=== PATIENT | male | born 1950 | race Caucasian/White ===

== ENCOUNTER 2018-07-30 19:13 | Inpatient (IN) | payer MEDICARE, BC ==
--- OUTSIDE RECORDS SUMMARY | 2018-07-30 19:31 | XMS REPORT ---
:1950 External Reference #:[id number] Author Organization [facility] Address [address] [place] [address] Phone [phone] Care Team Providers Name Role Phone Jean-Claude Magaña MD Care Team Information Seasoner Unavailable Jean-Claude Magaña MD Primary Care Physician Unavailable Payers Type Date Identification Numbers Payment Provider Subscriber Medicare Primary Effective: Policy Number: Medicare [place]nn Christensen 2014 [id number] PayID: [id number] [address] [place] [address] Medigap Part B Effective: 2001 Policy Number: [facility] Brooklynn Christensen [id number] PayID: [id number] [address] [place] [address] Problems Date Description Provider Status Onset: 02/23/2016 Mixed hyperlipidemia Jean-Claude Magaña M.D. Active Onset: 12/28/2014 Diarrhea Jean-Claude Magaña M.D. Active Onset: 09/06/2011 Diverticulitis of colon Jean-Claude Magaña M.D. Active Onset: 09/06/2011 Benign prostatic hypertrophy without Jean-Claude Magaña M.D. Active outflow obstruction Onset: 10/23/2007 Multiple congenital cysts of kidney Jean-Claude Magaña M.D. Active Onset: 10/23/2007 Benign essential hypertension Jean-Claude Magaña M.D. Active Onset: 10/23/2007 Hyperlipidemia Jean-Claude Magaña M.D. Active Onset: 10/23/2007 Coronary arteriosclerosis Jean-Claude Magaña M.D. Active Family History Date Family Member(s) Problem(s) Comments First Daughter polycystic renal disease Status post renal transplant Social History Type Date Description Comments Occupation Guide Cigarette Use Former Cigarette Smoker Cigars Current Cigar Smoker, Smokes An Occasional Cigar ETOH Use Occasional Smoking Patient is a former smoker Allergies, Adverse Reactions, Alerts Date Description Reaction Status Severity Comments 04/20/2007 Niacin active flush 05/07/2007 Cipro active 05/21/2017 Metronidazole lips swell active Moderate 07/29/2018 Augmentin diarrhea active Medications Medication Date Status Form Strength Qnty SIG Indications Ordering Provider Nitrostat 10/30/ Active Tablets 0.4mg 25tabs 1 sl as Jean-Claude F. 2017 Sub needed, Archana, repeat M.D. every 5 minutes up to three tabs, call 911 Lisinopril 09/11/ Active Tablets 10mg 90tabs Take 1 Jean-Claude F. 2012 Tablet By Shallish, Mouth Once M.D. Daily Crestor 04/17/ Active Tablets 10mg 45tabs Take 1/2 Jean-Claude F. 2010 Tablet By Shallish, Mouth Once M.D. Daily Folic Acid 07/18/ Active Tablets 1mg 90tabs Take 1 Jean-Claude F. 2004 Tablet By Shallish, Mouth Once M.D. Daily Asa 05/11/ Active 81mg PO qd Jean-Claude F. 2003 Isabella Magaña Metoprolol 05/11/ Active Tablets 50mg 90tabs Take 1/2 Jean-Claude F. Tartrate 2003 Tablet By Shallish, Mouth M.D. Daily In The Morning And 1/2 Tablet In The Evening Bactrim DS 04/15/ Hx Tablets 800-160mg 20tabs 1 by mouth Jean-Claude F. 2017 - twice a Shallish, 07/17/ day M.D. 2017 Bactrim DS 05/21/ Hx Tablets 800-160mg 20tabs 1 by mouth Jean-Claude F. 2016 - twice a Shallish, 03/16/ day M.D. 2017 Metronidazole 05/21/ Hx Tablets 250mg 21tabs 1 po tid Jean-Claude F. 2016 - Shallish, 05/21/ M.D. 2016 Metronidazole 09/23/ Hx Tablets 500mg 24tabs 1 pill Jonathon Holder 2016 - tHREE Breiman, 02/22/ Times A M.D. 2015 Day For 8 Days Clobetasol 12/28/ Hx Cream 0.05% 60GMS apply Jean-Claude F. Propionate 2014 - twice a Shallish, 07/23/ day as M.D. 2018 needed Folate 03/30/ Hx 1mg 90unit 1 po qd Jean-Claude F. 2012 - s Archana, 03/30/ M.D. 2012 Metoprolol 12/22/ Hx 50mg. 09/17 tab Jean-Claude F. Tartrate 2012 - am, 09/17 Shalladriano, 12/22/ tab pm M.D. 2012 Azithromycin 07/05/ Hx Tablets 250mg 6tabs take 2 Jean-Claude F. 2011 - tablets by Archana, 07/12/ mouth on M.D. 2011 day 1 then 1 tablet on days 2 through 5 Metronidazole 04/21/ Hx Tablets 500mg 30tabs 1 po tid Jean-Claude F. 2011 - Archana, 05/01/ M.D. 2011 Azithromycin 09/06/ Hx Tablets 250mg 6tabs take 2 Jean-Claude F. 2010 - tablets by Archana, 03/13/ mouth on M.D. 2011 day 1 then 1 tablet on days 2 through 5 Fiorinal 06/19/ Hx 100uni use 2 po Jonathon Holder 2009 - ts q 4-6 hr Kylie, 02/27/ M.D. 2010 Metronidazole 02/14/ Hx Tablets 500mg 14tabs 1po bid x 562.11 Mary Corley 2009 - 7d. with Corina, 06/19/ eliecer or Isabella 2009 mehnaz. Ceftin 02/06/ Hx Tablets 500mg 20tabs 1 PO bid Jean-Claude F. 2009 - Archana, 02/16/ M.D. 2009 Doxycycline 07/23/ Hx Capsules 100mg 2caps use 2 Jonathon Urrutia 2007 - pills Breimajaney, 08/16/ M.D. 2009 Crestor 11/25/ Hx Tablets 5mg 90tabs 1 po qd Jean-Claude F. 2007 - Archana, 04/17/ M.D. 2010 Lovaza 11/08/ Hx Capsules 1gm 180cap 1 po bid Jean-Claude F. 2007 - s Archana, 11/25/ M.D. 2007 Ceftin 05/07/ Hx Tablets 500mg 20tabs 1 PO bid Laurence 2006 - Arielle, 05/17/ Afnp-C 2007 Ciprofloxacin 02/26/ Hx Tablets 500mg 20tabs 1 bid x Jonathon Holder 2007 - 10 days Erinimajaney, 05/07/ M.D. 2006 Niaspan 02/23/ Hx Capsules 500mg 90caps 1 PO qd Jean-Claude F. 2006 - Shallish, 04/20/ M.D. 2007 [facility] 5 Panel Drug Test Jean-Claude F. 2005 - For Dot Shallish, M.D. 2008 (Dot 5 Panel) Folate 07/18/ Hx 1mg 90unit 1 po qd Jean-Claude F. 2004 - s ish, M.D. 2012 Zetia 07/03/ Hx Tablets 10mg 90tabs 1 po qd Jean-Claude F. 2004 - Shallish, M.D. 2008 Pravachol 06/12/ Hx Tablets 20mg 30tabs 1 po hs Jean-Claude F. 2004 - ish, M.D. 2004 Nitroglycerin 06/12/ Hx Tablets 0.4mg 25tabs 1 sl prn Jean-Claude F. 2004 - Sub Chest [facility], 11/12/ Pain, January M.D. 2013 Repeat q 5-10Min,If No Relief After 3,Call Emt's Zocor 01/24/ Hx Tablets 20mg 90tabs 1 PO QHS Jean-Claude F. 2004 - Shallish, M.D. 2004 Clobetasol 01/11/ Hx .05%Cream 60gm apply Jean-Claude F. 2004 - twice a ish, 12/28/ day as M.D. 2014 needed Lopressor 05/11/ Hx 50mg. 90unit 09/17 tab Jean-Claude F. 2003 - s am, 09/17 Shallish, 12/22/ tab pm M.D. 2012 Lipitor 05/11/ Hx 10mg 90unit 1 po qd [facility]. 2003 [facility] 2007 Amoxicillin 02/24/ Hx 250mg 30unit 1 PO tid Laurence 2002 - s Arielle, 03/06/ Afnp-C 2002 Zestril 12/02/ Hx Tablets 10mg 90tabs 1 tablet Jean-Claude F. 1997 - once daily ish, M.D. 2016 Colyte 10/21/ Hx 1units as Jean-Claude F. 1997 - Directed ish, M.D. 1997 Immunizations CPT Code Status Date Vaccine Lot # [id number] Given 09/06/2011 Tdap Tetanus, W Pertussis [id number] Vital Signs Date Vital Result Comment 07/29/2018 BP Systolic 138 mmHg BP Diastolic 60 mmHg Heart Rate 56 /min Body Temperature 99.0 F Respiratory Rate 20 /min O2 % BldC Oximetry 95 % Height 66.5 inches 5'6.50" Weight 182.50 lb BMI (Body Mass Index) 29.0 kg/m2 04/15/2018 BP Systolic 116 mmHg BP Diastolic 68 mmHg Heart Rate 52 /min Body Temperature 98.2 F Respiratory Rate 16 /min Height 66.5 inches 5'6.50" Weight 178.38 lb BMI (Body Mass Index) 28.4 kg/m2 12/07/2016 Right Visual Acuity Distance 20/30/ uncorrected Left Visual Acuity Distance 20/40 uncorrected 10/30/2016 BP Systolic 118 mmHg BP Diastolic 60 mmHg Heart Rate 68 /min Respiratory Rate 18 /min Height 66.5 inches 5'6.50" Weight 186.12 lb BMI (Body Mass Index) 29.6 kg/m2 Right Visual Acuity Distance 20/20 corrected Left Visual Acuity Distance 20/20 corrected 02/23/2016 BP Systolic 128 mmHg BP Diastolic 68 mmHg Heart Rate 64 /min Body Temperature 98.1 F Respiratory Rate 16 /min Height 66 inches 5'6" Measured Weight 181.00 lb BMI (Body Mass Index) 29.2 kg/m2 12/28/2014 BP Systolic 120 mmHg BP Diastolic 74 mmHg Heart Rate 58 /min Body Temperature 98.0 F Respiratory Rate 16 /min Height 66 inches 5'6" Measured Weight 174.50 lb BMI (Body Mass Index) 28.2 kg/m2 11/12/2013 BP Systolic 116 mmHg BP Diastolic 66 mmHg Heart Rate 60 /min Body Temperature 97.9 F Respiratory Rate 14 /min Height 66 inches 5'6" Measured Weight 180.00 lb BMI (Body Mass Index) 29.0 kg/m2 03/13/2012 BP Systolic 128 mmHg BP Diastolic 72 mmHg Heart Rate 60 /min Body Temperature 97.6 F Height 66 inches 5'6" Measured Weight 169.00 lb BMI (Body Mass Index) 27.3 kg/m2 10/23/2011 Height 66 inches 5'6" Measured 09/06/2011 BP Systolic 140 mmHg BP Diastolic 74 mmHg Heart Rate 56 /min Body Temperature 98.1 F Height 66 inches 5'6" Measured Weight 173.00 lb BMI (Body Mass Index) 27.9 kg/m2 Right Visual Acuity Distance 20/20 corrected Left Visual Acuity Distance 20/20 corrected 02/27/2011 BP Systolic 122 mmHg BP Diastolic 64 mmHg Heart Rate 68 /min Height 66.25 inches 5'6.25" Weight 172.00 lb BMI (Body Mass Index) 27.5 kg/m2 Right Visual Acuity Distance 20/20 corrected Left Visual Acuity Distance 20/20 06/19/2010 BP Systolic 120 mmHg BP Diastolic 80 mmHg Heart Rate 52 /min Height 66.25 inches 5'6.25" Weight 170.00 lb BMI (Body Mass Index) 27.2 kg/m2 02/14/2010 BP Systolic 102 mmHg BP Diastolic 60 mmHg Heart Rate 66 /min Body Temperature 97.7 F Height 66.25 inches 5'6.25" Weight 168.00 lb BMI (Body Mass Index) 26.9 kg/m2 08/16/2009 BP Systolic 140 mmHg BP Diastolic 78 mmHg Heart Rate 64 /min Body Temperature 97.7 F Height 66.25 inches 5'6.25" Weight 168.00 lb BMI (Body Mass Index) 26.9 kg/m2 07/23/2008 BP Systolic 150 mmHg BP Diastolic 70 mmHg Heart Rate 72 /min Body Temperature 98.1 F Height 66.25 inches 5'6.25" Weight 178.00 lb BMI (Body Mass Index) 28.5 kg/m2 10/23/2007 BP Systolic 128 mmHg BP Diastolic 74 mmHg Heart Rate 56 /min Body Temperature 97.1 F Respiratory Rate 16 /min Height 66.25 inches 5'6.25" Weight 174.00 lb BMI (Body Mass Index) 27.9 kg/m2 05/07/2007 BP Systolic 102 mmHg BP Diastolic 72 mmHg Heart Rate 84 /min Body Temperature 99.0 F Height 66.25 inches 5'6.25" 02/07/2007 BP Systolic 94 mmHg BP Diastolic 60 mmHg Heart Rate 68 /min Body Temperature 98.7 F Height 66.25 inches 5'6.25" Weight 174.00 lb BMI (Body Mass Index) 27.9 kg/m2 01/03/2006 BP Systolic 116 mmHg BP Diastolic 64 mmHg Heart Rate 56 /min Height 66.25 inches 5'6.25" Right Visual Acuity Distance 20/20 Corrected Left Visual Acuity Distance 20/20 Corrected 07/03/2005 BP Systolic 126 mmHg BP Diastolic 70 mmHg Heart Rate 56 /min Height 66.25 inches 5'6.25" 06/13/2005 BP Systolic 138 mmHg BP Diastolic 88 mmHg Heart Rate 70 /min Body Temperature 98.0 F Respiratory Rate 20 /min Height 66.25 inches 5'6.25" 06/12/2005 BP Systolic 110 mmHg BP Diastolic 70 mmHg Heart Rate 52 /min Height 66.25 inches 5'6.25" Weight 164.00 lb BMI (Body Mass Index) 26.3 kg/m2 01/11/2005 BP Systolic 120 mmHg BP Diastolic 80 mmHg Heart Rate 56 /min Height 66.25 inches 5'6.25" Weight 172.00 lb BMI (Body Mass Index) 27.5 kg/m2 09/12/2004 BP Systolic 136 mmHg BP Diastolic 70 mmHg Heart Rate 68 /min Height 66.25 inches 5'6.25" Weight 174.00 lb BMI (Body Mass Index) 27.9 kg/m2 05/11/2004 BP Systolic 108 mmHg BP Diastolic 60 mmHg Heart Rate 60 /min Height 66.25 inches 5'6.25" Weight 168.00 lb BMI (Body Mass Index) 26.9 kg/m2 02/24/2003 BP Systolic 120 mmHg BP Diastolic 62 mmHg Heart Rate 68 /min Body Temperature 98.6 F Height 67 inches 5'7" Weight 170.00 lb BMI (Body Mass Index) 26.6 kg/m2 01/19/1998 BP Systolic 116 mmHg BP Diastolic 74 mmHg Height 67 inches 5'7" Weight 154.00 lb 12/09/1997 BP Systolic 114 mmHg BP Diastolic 68 mmHg Height 67 inches 5'7" Weight 163.00 lb 10/01/1997 BP Systolic 130 mmHg L Arm SM Cuff BP Diastolic 70 mmHg L Arm SM Cuff Heart Rate 6060 /min Body Temperature 97.4 F Height 67.00 inches 5'7" Weight 176.00 lb Results Test Date Test Result H/L Range Note Lipid Profile 04/15/2018 Cholesterol 178 mg/dL 120-200 Triglycerides 261 mg/dL High 30-200 HDL Cholesterol 32 mg/dL 30-70 LDL (Calculated) 94 CALC 0-129 VLDL Cholesterol 52 mg/dL High 0-50 HDL Risk Factor 5.6 CALC High 0.0-4.4 Comprehensive Metabolic Prof 04/15/2018 Sodium 136 mEq/L 134-149 Potassium 5.2 mEq/L 3.6-5.5 Chloride 109 mEq/L 94-112 Carbon Dioxide 21 mEq/L 21-32 Glucose 113 mg/dL High 70-105 1 BUN 52 mg/dL High 6-26 Creatinine 2.7 mg/dL High 0.6-1.4 BUN/Creat Ratio 19.3 CALC 8.0-36.0 Calcium 9.2 mg/dL 8.6-10.2 Total Protein 7.3 g/dL 6.4-8.3 Albumin 4.7 g/dL 3.8-5.5 Globulin 2.6 g/dL 2.0-4.8 A/G Ratio 1.8 CALC 0.6-2.3 Alk. Phosphatase 73 U/L 22-95 Alt (SGPT) 33 U/L 7-35 Ast (Sgot) 22 U/L 5-34 Total Bilirubin 0.7 mg/dL 0.2-1.3 GFR Non- 25 ml/min/1.73m^ Low >=60 GFR 30 ml/min/1.73m^ Low >=60 Laboratory test finding 04/15/2018 TSH 1.92 mIU/L 0.50-6.00 CK 180 U/L High 38-174 PSA 0.6 ng/mL 0.0-4.0 CBC Electronic Fma 04/15/2018 WBC 7.9 x10^3/UL 4.0-10.0 RBC 5.84 x10^6/UL 3.93-6.00 HGB 18.1 g/dL High 12.0-17.0 2 HCT 52 % High 35-50 3 MCV 89.7 fL 80.0-95.0 MCH 31.0 pg 25.6-32.2 MCHC 34.5 g/dL 32.2-36.0 RDW-CV 12.7 % 11.6-14.4 PLT 196 x10^3/UL 163-400 MPV 9.7 fL 9.4-12.4 Bennett# 5.09 x10^3/UL 1.56-6.13 Lymph# 1.75 x10^3/UL 1.18-3.74 Sumner# 0.63 x10^3/UL 0.24-0.82 Eos # 0.3 x10^3/UL 0.0-0.5 Baso # 0.04 x10^3/UL 0.01-0.08 Bennett% 64.9 % 34.0-70.0 Lymph % 22.3 % 20.0-52.0 Sumner% 8.0 % 5.0-12.0 Eos% 3.4 % 0.7-7.0 Baso% 0.5 % 0.1-1.2 Ua - Non Micro (Fma) 04/15/2018 Appearance clear Color yellow Glucose, Urine (Fma/CMC/CTX) negative Bilirubin negative Ketones negative SP Grav 1.010 Blood negative PH 5.5 Protein negative Urobil 0.2 Nitrite negative Leukocytes (Fma/CMC/Centrex) negative Lipid Profile 10/30/2016 Cholesterol 159 mg/dL 120-200 Triglycerides 240 mg/dL High 30-200 HDL Cholesterol 28 mg/dL Low 30-70 4 LDL (Calculated) 83 CALC 0-129 VLDL Cholesterol 48 mg/dL 0-50 HDL Risk Factor 5.7 CALC High 0.0-4.4 Comprehensive Metabolic Prof 10/30/2016 Sodium 141 mEq/L 134-149 Potassium 4.9 mEq/L 3.6-5.5 Chloride 106 mEq/L 94-112 Carbon Dioxide 23 mEq/L 21-32 Glucose 95 mg/dL 70-105 BUN 40 mg/dL High 6-26 5 Creatinine 1.9 mg/dL High 0.6-1.4 6 BUN/Creat Ratio 21.1 CALC 8.0-36.0 Calcium 9.3 mg/dL 8.6-10.2 Total Protein 7.7 g/dL 6.4-8.3 Albumin 4.7 g/dL 3.8-5.5 Globulin 3.0 g/dL 2.0-4.8 A/G Ratio 1.6 CALC 0.6-2.3 Alk. Phosphatase 57 U/L 22-95 Alt (SGPT) 31 U/L 7-35 Ast (Sgot) 27 U/L 5-34 Total Bilirubin 1.0 mg/dL 0.2-1.3 GFR Non- 38 ml/min/1.73m^ Low >=60 GFR 46 ml/min/1.73m^ Low >=60 Laboratory test finding 10/30/2016 TSH 2.45 mIU/L 0.50-6.00 CK 195 U/L High 38-174 7 PSA 1.2 ng/mL 0.0-4.0 Ua - Non Micro ([facility]) 10/30/2016 Appearance clear Color yellow Glucose, Urine (a/CMC/CTX) neg Bilirubin neg Ketones neg SP Grav 1.015 Blood neg PH 5.5 Protein neg Urobil 0.2 Nitrite neg Leukocytes (a/CMC/Centrex) neg CBC Electronic ([facility]) 10/30/2016 WBC 9.2 3.6-9.6 RBC 5.44 3.90-5.70 Hemoglobin (a/CMC/CTX) 16.8 g/dL 12.1 - 17.2 Hematocrit (Fma/CMC/CTX) 49.7 % 36.1 - 50.3 Platelets 175 10^3/ul 150-400 Lymph% 23.2 % 17.0-48.0 Mixed% 4.4 Neutrophils % 72.4 Mean Corpuscular Vol 91 82.2-97.4 Mean Corpuscular Hemoglobin 30.9 27.6-33.3 Mean Corpuscular Hemo Concen 33.9 32.0-36.0 RDW 13.5 11.6-13.7 Mean Platelet Volume 7.1 5.5-11.0 Ua - Non Micro ([facility]) 02/23/2016 Appearance clear Color yellow Glucose, Urine (a/CMC/CTX) neg Bilirubin neg Ketones neg SP Grav 1.015 Blood neg PH 5.5 Protein neg Urobil 0.2 Nitrite neg Leukocytes (a/[facility]Centrex) neg CBC Electronic ([facility]) 02/23/2016 WBC 8.8 3.6-9.6 RBC 5.57 3.90-5.70 Hemoglobin (a/CMC/CTX) 17.3 g/dL High 12.1 - 17.2 Hematocrit (a/CMC/CTX) 51.9 % High 36.1 - 50.3 Platelets 155 10^3/ul 150-400 Lymph% 22.7 % 17.0-48.0 Mixed% 5.0 Neutrophils % 72.3 Mean Corpuscular Vol 93 82.2-97.4 Mean Corpuscular Hemoglobin 31.1 27.6-33.3 Mean Corpuscular Hemo Concen 33.4 32.0-36.0 RDW 13.2 11.6-13.7 Mean Platelet Volume 6.5 5.5-11.0 Lipid Profile 02/23/2016 Cholesterol 177 mg/dL 120-200 Triglycerides 195 mg/dL 30-200 HDL Cholesterol 38 mg/dL 30-70 LDL (Calculated) 100 CALC 0-129 VLDL Cholesterol 39 mg/dL 0-50 HDL Risk Factor 4.7 CALC High 0.0-4.4 Comprehensive Metabolic Prof 02/23/2016 Sodium 139 mEq/L 134-149 Potassium 4.4 mEq/L 3.6-5.5 Chloride 102 mEq/L 94-112 Carbon Dioxide 22 mEq/L 21-32 Glucose 86 mg/dL 70-105 BUN 38 mg/dL High 6-26 Creatinine 1.6 mg/dL High 0.6-1.4 BUN/Creat Ratio 23.8 CALC 8.0-36.0 Calcium 9.6 mg/dL 8.6-10.2 Total Protein 7.3 g/dL 6.4-8.3 Albumin 4.6 g/dL 3.8-5.5 Globulin 2.7 g/dL 2.0-4.8 A/G Ratio 1.7 CALC 0.6-2.3 Alk. Phosphatase 63 U/L 22-95 Alt (SGPT) 32 U/L 7-35 Ast (Sgot) 25 U/L 5-34 Total Bilirubin 0.7 mg/dL 0.2-1.3 GFR Non- 46 ml/min/1.73m^ Low >=60 GFR 56 ml/min/1.73m^ Low >=60 Laboratory test finding 02/23/2016 TSH 2.11 mIU/L 0.50-6.00 PSA 0.5 ng/mL 0.0-4.0 CK 209 U/L High 38-174 8 Ict-Hemoccult (MCR)Fma Screeni 02/01/2015 Ict Hemoccult (1) 01/04/15 NEG Ict Hemoccult-(2) 01/05/15 NEG Ict-Hemoccult (3) 01/06/15 NEG O&P Ova & Parasites 01/04/2015 O P: Giardia/Cryptospor Screen (SEE NOTE) 9 Screen Laboratory test finding 01/04/2015 Stool Culture (SEE NOTE) 10 E.coli O157:H7 Culture (SEE NOTE) 11 Lipid Profile 12/28/2014 Cholesterol 165 mg/dL 120-200 Triglycerides 261 mg/dL High 30-200 HDL Cholesterol 28 mg/dL Low 30-70 LDL (Calculated) 85 CALC 0-129 12 VLDL Cholesterol 52 mg/dL High 0-50 HDL Risk Factor 5.9 CALC High 0.0-4.4 Comprehensive Metabolic Prof 12/28/2014 Sodium 139 mEq/L 134-149 Potassium 4.2 mEq/L 3.6-5.5 Chloride 105 mEq/L 94-112 Carbon Dioxide 23 mEq/L 21-32 Glucose 95 mg/dL 70-105 BUN 45 mg/dL High 6-26 Creatinine 1.7 mg/dL High 0.6-1.4 BUN/Creat Ratio 26.5 CALC 8.0-36.0 Calcium 9.3 mg/dL 8.6-10.2 Total Protein 6.7 g/dL 6.4-8.3 Albumin 4.3 g/dL 3.8-5.5 Globulin 2.4 g/dL 2.0-4.8 A/G Ratio 1.8 CALC 0.6-2.3 Alk. Phosphatase 50 U/L 22-95 Alt (SGPT) 33 U/L 7-35 Ast (Sgot) 26 U/L 5-34 Total Bilirubin 0.5 mg/dL 0.2-1.3 Laboratory test finding 12/28/2014 TSH 2.01 mIU/L 0.50-6.00 CK 231 U/L High 38-174 PSA 0.5 ng/mL 0.0-4.0 LDL, Direct 87 mg/dL 0-130 Ua - Non Micro (a) 12/28/2014 Appearance clear Color yellow Glucose, Urine (Fma/CMC/CTX) neg Bilirubin neg Ketones neg SP Grav 1.015 Blood neg PH 5.5 Protein neg Urobil 0.2 Nitrite neg Leukocytes (Fma/CMC/Centrex) neg CBC Electronic (a) 12/28/2014 WBC 7.2 3.6-9.6 RBC 5.43 3.90-5.70 Hemoglobin (Fma/CMC/CTX) 16.8 g/dL 12.1 - 17.2 Hematocrit (Fma/CMC/CTX) 49.5 % 36.1 - 50.3 Platelets 181 10^3/ul 150-400 Lymph% 30.8 % 17.0-48.0 Mixed% 4.8 Neutrophils % 64.4 Mean Corpuscular Vol 91 82.2-97.4 Mean Corpuscular Hemoglobin 30.9 27.6-33.3 Mean Corpuscular Hemo Concen 33.9 32.0-36.0 RDW 13.1 11.6-13.7 Mean Platelet Volume 6.6 5.5-11.0 Lipid Panel 11/12/2013 Cholesterol, Total 177 mg/dL <200 13 Triglycerides 211 mg/dL <150 13 HDL Cholesterol 33 mg/dL Low 40-60 13 Chol/HDL Cholesterol 5.4 13, 14 LDL Cholesterol, Calc. 102 mg/dL 13, 15 LDL/HDL Cholesterol 3.1 13, 16 CBC 11/12/2013 WBC 7.1 x10E3/uL 4.3-10.9 13 RBC 5.61 x10E6/uL 4.70-6.20 13 Hemoglobin 17.5 g/dL High 13.0-17.0 13 Hematocrit 49.7 % 39.0-50.0 13 MCV 88.6 fl 82.0-98.0 13 MCH 31.2 pg 27.5-33.5 13 MCHC 35.2 g/dL 32.0-36.0 13 RDW 12.9 % 11.5-14.5 13 Platelet Count 152 x10E3/uL 130-400 13 MPV 10.7 fl 8.6-12.6 13 Segmented Neutrophils 59.8 % 44.0-74.0 13 Lymphocytes 26.4 % 15.0-45.0 13 Monocytes 7.7 % 2.0-13.0 13 Eosinophils 5.5 % 0.0-6.0 13 Basophils 0.6 % 0.0-2.0 13 Neutrophil Absolute 4.2 x10E3/uL 1.4-7.0 13 Lymphocytes Absolute 1.9 x10E3/uL 1.0-3.4 13 Monocyte Absolute 0.5 x10E3/uL 0.2-1.0 13 Eosinophil Absolute 0.4 x10E3/uL 0.0-0.5 13 Basophil Absolute 0.0 x10E3/uL 0.0-0.2 13 Comprehensive Metabolic 11/12/2013 Glucose 94 mg/dL 70-100 13 BUN 33 mg/dL High 5-21 13 Creatinine, Serum 1.36 mg/dL High 0.60-1.30 13 Sodium 142 mmol/L 136-146 13 Potassium 5.1 mmol/L 3.5-5.3 13 Chloride 109 mmol/L 98-110 13 Carbon Dioxide 29 mmol/L 20-32 13 Albumin 4.3 g/dL 3.5-4.7 13 Protein, Total 7.0 g/dL 6.4-8.3 13 Calcium 9.0 mg/dL 8.4-10.4 13 Alkaline Phosphatase 61 U/L 10-118 13 Sgot (Ast) 34 U/L 3-40 13 SGPT (Alt) 49 U/L 7-50 13 Bilirubin, Total 0.70 mg/dL 0.30-1.20 13 Laboratory test finding 11/12/2013 TSH (Thyrotropin) 2.280 uIU/ml 0.350- 5.500 13 CK, Total 136 U/L 41-270 13 PSA, Total 0.60 ng/ml 0.00-4.00 13, 17 Urinalysis W/ Micro (CX) 11/12/2013 Urine Color YELLOW Yellow 13 Urine Appearance CLEAR Clear 13 Urine Specific [place] 1.011 1.005-1.030 13 Urine Leukocytes TRACE Negative 13 Urine Nitrite NEGATIVE Negative 13 Urine PH 5.0 5.0-8.0 13 Urine Protein NEGATIVE mg/dL Negative 13 Urine Glucose NEGATIVE mg/dL Negative 13 Urine Ketones NEGATIVE mg/dL Negative 13 Urine Urobilinogen NORMAL mg/dL NORMALor<1 13 Urine Bilirubin NEGATIVE Negative 13 Urine Occult Blood NEGATIVE Negative 13 WBC 8 /hpf High 0-5 13 RBC 2 /hpf 0-3 13 Epithelial Cells <1 /hpf 13 Mucous Threads TRACE /lpf <1+ 13 Umixd 11/12/2013 Microscopic, Reflex INDICATED 13 Egfr (Calculated) 11/12/2013 Estimated GFR (CALCULATED) 13 Egfr 53 13, 18 Egfr, -[place] >60 13, 19 Lipid Panel 03/13/2012 Cholesterol, Total 157 mg/dL <200 20 Triglycerides 181 mg/dL <150 20 HDL Cholesterol 33 mg/dL Low 40-60 20 Chol/HDL Cholesterol 4.8 20, 21 LDL Cholesterol, Calc. 88 mg/dL 20, 22 LDL/HDL Cholesterol 2.7 20, 23 CBC 03/13/2012 WBC 11.5 x10E3/uL High 4.3-10.9 20 RBC 5.54 x10E6/uL 4.70-6.20 20 Hemoglobin 17.7 g/dL High 13.0-17.0 20 Hematocrit 49.2 % 39.0-50.0 20 MCV 88.8 fl 82.0-98.0 20 MCH 31.9 pg 27.5-33.5 20 MCHC 36.0 g/dL 32.0-36.0 20 RDW 12.9 % 11.5-14.5 20 Platelet Count 158 x10E3/uL 130-400 20 MPV 11.3 fl High 6.5-10.5 20 Segmented Neutrophils 71.9 % 44.0-74.0 20 Lymphocytes 19.1 % 15.0-45.0 20 Monocytes 5.9 % 2.0-13.0 20 Eosinophils 2.8 % 0.0-6.0 20 Basophils 0.3 % 0.0-2.0 20 Neutrophil Absolute 8.3 x10E3/uL High 1.4-7.0 20 Lymphocytes Absolute 2.2 x10E3/uL 1.0-3.4 20 Monocyte Absolute 0.7 x10E3/uL 0.2-1.0 20 Eosinophil Absolute 0.3 x10E3/uL 0.0-0.5 20 Basophil Absolute 0.0 x10E3/uL 0.0-0.2 20 Comprehensive Metabolic 03/13/2012 Glucose 91 mg/dL 70-100 20 BUN 28 mg/dL High 5-21 20 Creatinine, Serum 1.33 mg/dL High 0.60-1.30 20 Sodium 142 mmol/L 136-146 20 Potassium 4.8 mmol/L 3.5-5.3 20 Chloride 112 mmol/L High 98-110 20 Carbon Dioxide 25 mmol/L 20-32 20 Albumin 4.5 g/dL 3.5-4.7 20 Protein, Total 7.1 g/dL 6.4-8.3 20 Calcium 9.5 mg/dL 8.4-10.4 20 Alkaline Phosphatase 68 U/L 10-118 20 Sgot (Ast) 25 U/L 3-40 20 SGPT (Alt) 29 U/L 7-50 20 Bilirubin, Total 0.70 mg/dL 0.30-1.20 20 Laboratory test finding 03/13/2012 TSH (Thyrotropin) 1.570 uIU/ml 0.350- 5.500 20 CK, Total 170 U/L 41-270 20 Urinalysis Microscopic Only 03/13/2012 Urine Microscopic PERFORMED 0 20 , 24 WBC <1 /hpf 0-5 20 RBC <1 /hpf 0-3 20 Egfr (Calculated) 03/13/2012 Estimated GFR (CALCULATED) 20 Egfr 54 20, 25 Egfr, -[place] >60 20, 26 Surgical Pathology 11/23/2011 Surgical Pathology <SEE 27 NOTE> Lyme Igg/M W/RFX 09/20/2011 Lyme IgG/IgM Ab <0.91 index 0.00-0.9 28 West 0 Lyme Disease Ab, Quant, IgM <0.91 index 0.00-0.90 29 Lipid Panel 09/19/2011 Cholesterol, Total 167 mg/dL <200 30 Triglycerides 173 mg/dL <150 30 HDL Cholesterol 33 mg/dL Low 40-60 30 Chol/HDL Cholesterol 5.1 30, 31 LDL Cholesterol, Calc. 99 mg/dL 30, 32 LDL/HDL Cholesterol 3.0 30, 33 Comprehensive Metabolic 09/19/2011 Glucose 103 mg/dL High 70-100 30 BUN 29 mg/dL High 5-21 30 Creatinine, Serum 1.20 mg/dL 0.60-1.30 30 Sodium 141 mmol/L 136-146 30 Potassium 4.6 mmol/L 3.5-5.3 30 Chloride 109 mmol/L 98-110 30 Carbon Dioxide 27 mmol/L 20-32 30 Albumin 4.5 g/dL 3.5-4.7 30 Protein, Total 7.0 g/dL 6.4-8.3 30 Calcium 9.6 mg/dL 8.4-10.4 30 Alkaline Phosphatase 60 U/L 10-118 30 Sgot (Ast) 28 U/L 3-40 30 SGPT (Alt) 37 U/L 7-50 30 Bilirubin, Total 0.70 mg/dL 0.30-1.20 30 Laboratory test finding 09/19/2011 TSH (Thyrotropin) 1.910 uIU/ml 0.350- 5.500 30 CK, Total 129 U/L 41-270 30 CBC 09/19/2011 WBC 9.4 x10E3/uL 4.3-10.9 30 RBC 5.72 x10E6/uL 4.70-6.20 30 Hemoglobin 18.0 g/dL High 13.0-17.0 30 Hematocrit 50.9 % High 39.0-50.0 30 MCV 89.0 fl 82.0-98.0 30 MCH 31.5 pg 27.5-33.5 30 MCHC 35.4 g/dL 32.0-36.0 30 RDW 12.9 % 11.5-14.5 30 Platelet Count 156 x10E3/uL 130-400 30 MPV 11.1 fl High 6.5-10.5 30 Segmented Neutrophils 67.9 % 44.0-74.0 30 Lymphocytes 20.9 % 15.0-45.0 30 Monocytes 6.1 % 2.0-13.0 30 Eosinophils 4.1 % 0.0-6.0 30 Basophils 1.0 % 0.0-2.0 30 Neutrophil Absolute 6.4 x10E3/uL 1.4-7.0 30 Lymphocytes Absolute 2.0 x10E3/uL 1.0-3.4 30 Monocyte Absolute 0.6 x10E3/uL 0.2-1.0 30 Eosinophil Absolute 0.4 x10E3/uL 0.0-0.5 30 Basophil Absolute 0.1 x10E3/uL 0.0-0.2 30 Laboratory test finding 09/19/2011 T-4 Free 1.0 ng/dL 0.8-1.8 30 PSA, Total 0.50 ng/ml 0.00-4.00 30, 34 Creatinine Clearance 09/19/2011 Creatinine, Serum 1.20 mg/dL 0.60-1.30 30 Creatinine, 24 HR Urine 1.49 g/24hrs 1.30-2.60 30 Creatinine Clearance 86.00 mL/min 61.00-166.00 30, 35 Total Volume, 24 Hour 2000 ml/24hrs 30 Protein 24 HR Urine 09/19/2011 Tot. Protein 24HR Urine 120.0 mg/24hrs 42.0-225.0 30 Egfr (Calculated) 09/19/2011 Estimated GFR (CALCULATED) 30 Egfr >60 30, 36 Egfr, -[place] >60 30, 37 Ua - Non Micro (Fma) 09/06/2011 Appearance clear Color yellow Glucose, Urine (Fma/CMC/CTX) neg Bilirubin neg Ketones neg SP Grav 1.015 Blood neg PH 5.5 Protein neg Urobil 0.2 Nitrite neg Leukocytes (Fma/CMC/Centrex) neg Ua - Non Micro (Fma) 02/27/2011 Appearance CLEAR Color YELLOW Glucose NEG Bilirubin NEG Ketones NEG SP Grav 1.015 Blood NEG PH 6.5 Protein NEG Urobil 0.2 Nitrite NEG Leukocytes (a/CMC/Centrex) NEG Ua - Non Micro ([facility]) 08/16/2009 Appearance CLEAR Color YELLOW Glucose NEG Bilirubin NEG Ketones NEG SP Grav 1.015 Blood NEG PH 6.0 Protein NEG Urobil 0.2EU/DL Nitrite NEG Leukocytes (a/CMC/Centrex) NEG CBC ([facility]) 08/16/2009 WBC 7.8 3.6-9.6 RBC 5.41 3.90-5.70 Hemoglobin (Fma/CMC/CTX) 16.3 g/dL 12.1 - 17.2 Hematocrit (a/CMC/CTX) 47.8 % 36.1 - 50.3 Mean Corpuscular Vol 88.4 82.2-97.4 Mean Corpuscular Hemaglobin 30.1 27.6-33.3 Mean Corpuscular Hemo Concen 34.1 33.0-36.0 Platelets 160 10^3/ul 150-400 Lymph% 28.2 20.5-51.1 Mixed% 6.0 Neutrophils % 65.8 RDW 13.0 11.6-13.7 Mean Platelet Volume 10.1 7.4-10.4 Lipid Panel 08/16/2009 Cholesterol, Total 173 mg/dL <200 38 HDL Cholesterol 37 mg/dL Low 40-60 38 Triglycerides 137 mg/dL <150 38 Chol/HDL Cholesterol 4.7 38, 39 LDL Cholesterol, Calc. 109 mg/dL 38, 40 LDL/HDL Cholesterol 2.9 38, 41 Comprehensive Metabolic 08/16/2009 Glucose 90 mg/dL 70-100 38 BUN 25 mg/dL High 5-21 38 Creatinine, Serum 1.35 mg/dL High 0.60-1.30 38 Sodium 144 mmol/L 136-146 38 Chloride 109 mmol/L 98-110 38 Carbon Dioxide 29 mmol/L 20-32 38 Albumin 4.5 g/dL 3.5-4.7 38 Protein, Total 7.0 g/dL 6.4-8.3 38 Calcium 9.8 mg/dL 8.4-10.4 38 Alkaline Phosphatase 63 U/L 10-118 38 Sgot (Ast) 30 U/L 3-40 38 SGPT (Alt) 48 U/L 7-50 38 Bilirubin, Total 0.60 mg/dL 0.30-1.20 38 Potassium 4.5 mmol/L 3.5-5.3 38 GFR Calculated 08/16/2009 GFR (Calculated) 54 38, 42 Laboratory test 08/16/2009 TSH (Thyrotropin) 2.610 uIU/ml 0.350-5.500 38 finding CK, Total 226 U/L 41-270 38 PSA 0.4 ng/ml 0.0-4.0 38, 43 Ict Hemoccult (Fma) 02/04/2008 Ict Hemoccult (1) NEG Ict Hemoccult-(2) NEG Ict-Hemoccult (3) NEG Lipid Profile 12/24/2007 Cholesterol, Total 138 mg/dL 120-200 44, 45 HDL Cholesterol 30 mg/dL Low 40-60 44 LDL Cholesterol, Calc. 81 mg/dL <130 44, 46 Triglycerides 135 mg/dL 44, 47 LDL/HDL Cholesterol 2.7 44, 48 Chol/HDL Cholesterol 4.6 44, 49 Comprehensive Metabolic 12/24/2007 Glucose 105 mg/dL High 70-100 44 BUN 28 mg/dL High 5-21 44 Creatinine, Serum 1.3 mg/dL 0.6-1.5 44 Sodium 140 mmol/L 136-146 44 Potassium 4.5 mmol/L 3.5-5.3 44 Chloride 109 mmol/L 98-110 44 Carbon Dioxide 22 mmol/L 20-32 44 Albumin 4.2 g/dL 3.5-4.7 44 Protein, Total 6.7 g/dL 6.4-8.2 44 Calcium 9.0 mg/dL 8.4-10.4 44 Alkaline Phosphatase 52 U/L 10-118 44 Sgot (Ast) 29 U/L 3-40 44 SGPT (Alt) 39 U/L 7-50 44 Bilirubin, Total 0.90 mg/dL 0.30-1.20 44 Laboratory test finding 12/24/2007 CK, Total 211 U/L 41-270 44 Urine Total Protein 12/24/2007 Tot. Protein 24HR 132.0 mg/24hrs 42.0- 225.0 44 24HR (CTX) Urine Total Volume, 24 Hour 2200 ml/24hrs 44 Creatinine Clearance 12/24/2007 Creatinine, Serum 1.3 mg/dL 0.6-1.5 44 Creatinine, 24 HR Urine 1.7 g/24hrs 1.3-2.6 44 Creatinine Clearance 92.1 mL/min 61.0-166.0 44 Laboratory test finding 12/24/2007 GFR (Calculated) >60 44, 50 Lipid Profile 10/23/2007 Cholesterol, Total 234 mg/dL High 120-200 51, 52 HDL Cholesterol 34 mg/dL Low 40-60 51 LDL Cholesterol, Calc. 152 mg/dL <130 51, 53 Triglycerides 242 mg/dL 51, 54 LDL/HDL Cholesterol 4.5 51, 55 Chol/HDL Cholesterol 6.9 51, 56 CBC 10/23/2007 WBC 5.8 x103 4.3-10.9 51 RBC 5.60 x106 4.70-6.20 51 Hemoglobin 17.5 g/dL High 13.0-17.0 51 Hematocrit 50.6 % High 39.0-50.0 51 MCV 90.4 fl 82.0-98.0 51 MCH 31.3 pg 27.5-33.5 51 MCHC 34.6 g/dL 51 RDW 13.3 % 11.5-14.5 51 Platelet Count 162 x103 130-400 51 MPV 10.8 fl High 6.5-10.5 51 Segmented Neutrophils 59.7 % 44.0-74.0 51 Lymphocytes 28.1 % 15.0-45.0 51 Monocytes 6.8 % 2.0-13.0 51 Eosinophils 4.5 % 0.0-6.0 51 Basophils 0.9 % 0.0-2.0 51 Neutrophil Absolute 3.5 x103 1.4-7.0 51 Lymphocytes Absolute 1.6 x103 1.0-3.4 51 Monocyte Absolute 0.4 x103 0.2-1.0 51 Eosinophil Absolute 0.3 x103 0.0-0.5 51 Basophil Absolute 0.1 x103 0.0-0.2 51 Comprehensive Metabolic 10/23/2007 Glucose 101 mg/dL High 70-100 51 BUN 25 mg/dL High 5-21 51 Creatinine, Serum 1.3 mg/dL 0.6-1.5 51 Sodium 140 mmol/L 136-146 51 Potassium 4.4 mmol/L 3.5-5.3 51 Chloride 110 mmol/L 98-110 51 Carbon Dioxide 22 mmol/L 20-32 51 Albumin 4.1 g/dL 3.5-4.7 51 Protein, Total 6.6 g/dL 6.4-8.2 51 Calcium 9.0 mg/dL 8.4-10.4 51 Alkaline Phosphatase 58 U/L 10-118 51 Sgot (Ast) 29 U/L 3-40 51 SGPT (Alt) 38 U/L 7-50 51 Bilirubin, Total 0.80 mg/dL 0.30-1.20 51 Laboratory test finding 10/23/2007 PSA 0.5 ng/ml 0.0-4.0 51, 57 Lyme Disease,Igg/Igm 0.28 INDEX Negative 51, 58 GFR (Calculated) >60 51, 59 Complete Blood Count 02/26/2007 WBC 11.9 x10\\S\\3/uL High 3.6-9.6 Gran# 9.9 x10\\S\\3/uL High 1.5-7.2 Gran% 82.9 % High 42.2-75.2 HCT 48 % 36-50 HGB 16.9 g/dL 12.1-17.2 Lymph# 1.4 x10\\S\\3/uL 0.7-4.9 Lymph% 11.6 % Low 20.5-51.1 MCH 31.6 pg 27.6-33.3 MCV 89.6 fL 82.2-97.4 MCHC 35.3 g/dL 33.0-35.5 Mo# 0.7 x10\\S\\3/uL 0.1-0.9 Mo% 5.5 % 1.7-9.3 MPV 8.8 fL 7.4-10.4 PLT 186 x10\\S\\3/uL 150-400 RBC 5.33 x10\\S\\6/uL 3.90-5.70 RDW 12.6 % 11.6-13.7 Ua - Micro (Fma) 02/26/2007 Appearance CLEAR Color LT YELLOW Glucose, Urine (Fma/CMC/CTX) NEG Bilirubin NEG Ketones NEG SP Grav 1.020 Blood NEG PH 5.0 Protein SSA NEG Urobil 0.2 Nitrite NEG Leukocytes (Fma/CMC/Centrex) NEG Hyaline - /Lpf Granular - /Lpf WBC (Fma,Centrex) 0-2 RBC - Mucus (Fma/CBC/Centrex) SM AMT /Lpf Epith - /Lpf Bacteria TRACE /Hpf Amorphous (Fma/CMC/Centrex) SM AMT /Lpf Crystals, Fluid (Fma/CMC/CTX) - Z#Comments - Lipid Profile 02/07/2007 Cholesterol, Total 216 mg/dL High 120-200 60, 61 HDL Cholesterol 25 mg/dL Low 40-60 60 LDL Cholesterol, Calc. 137 mg/dL <130 60, 62 Triglycerides 271 mg/dL 60, 63 LDL/HDL Cholesterol 5.5 60, 64 Chol/HDL Cholesterol 8.6 60, 65 CBC 02/07/2007 WBC 9.2 x103 4.3-10.9 60 RBC 4.62 x106 Low 4.70-6.20 60 Hemoglobin 14.4 g/dL 13.0-17.0 60 Hematocrit 41.6 % 39.0-50.0 60 MCV 90.1 fl 82.0-98.0 60 MCH 31.1 pg 27.5-33.5 60 MCHC 34.5 g/dL 32.0-36.0 60 RDW 13.1 % 11.5-14.5 60 Platelet Count 282 x103 130-400 60 MPV 7.9 fl 6.5-10.5 60 Segmented Neutrophils 60.7 % 44.0-74.0 60 Lymphocytes 29.6 % 15.0-45.0 60 Monocytes 6.9 % 2.0-13.0 60 Eosinophils 2.4 % 0.0-6.0 60 Basophils 0.4 % 0.0-2.0 60 Neutrophil Absolute 5.6 x103 1.4-7.0 60 Lymphocytes Absolute 2.7 x103 1.0-3.4 60 Monocyte Absolute 0.6 x103 0.2-1.0 60 Eosinophil Absolute 0.2 x103 0.0-0.5 60 Basophil Absolute 0.0 x103 0.0-0.2 60 Comprehensive Metabolic 02/07/2007 Glucose 97 mg/dL 70-100 60 BUN 24 mg/dL High 5-21 60 Creatinine, Serum 1.5 mg/dL 0.6-1.5 60 Sodium 139 mmol/L 136-146 60 Potassium 4.2 mmol/L 3.5-5.3 60 Chloride 110 mmol/L 98-110 60 Carbon Dioxide 19 mmol/L Low 20-32 60 Albumin 4.3 g/dL 3.5-4.7 60 Protein, Total 6.8 g/dL 6.4-8.2 60 Calcium 9.1 mg/dL 8.4-10.4 60 Alkaline Phosphatase 59 U/L 10-118 60 Sgot (Ast) 23 U/L 3-40 60 SGPT (Alt) 29 U/L 7-50 60 Bilirubin, Total 0.80 mg/dL 0.30-1.20 60 Laboratory test finding 02/07/2007 TSH (Thyrotropin) 1.540 uIU/ml 0.350- 5.500 60 PSA 0.4 ng/ml 0.0-4.0 60, 66 Urinalysis W/ Micro If Indicated 02/07/2007 Urine Color YELLOW Yellow 60 Urine Appearance CLEAR Clear 60 Urine Specific [place] 1.017 1.005-1.030 60 Urine Leukocytes NEGATIVE Negative 60 Urine Nitrite NEGATIVE Negative 60 Urine PH 5.0 5.0-8.0 60 Urine Protein NEGATIVE mg/dL Negative 60 Urine Glucose NEGATIVE mg/dL Negative 60 Urine Ketones NEGATIVE mg/dL Negative 60 Urine Urobilinogen NORMAL mg/dL Normal Or <1 60 Urine Bilirubin NEGATIVE Negative 60 Urine Occult Blood NEGATIVE Negative 60 Laboratory test finding 02/07/2007 GFR (Calculated) 51 60, 67 Microscopic, Reflex NOT INDICATED 60 Laboratory test finding 01/03/2006 CK, Total 185 U/L 41-270 68 PSA 0.4 ng/ml 0.0-4.0 68, 69 Hepatic (Liver) Panel 01/03/2006 Albumin 4.4 g/dL 3.5-4.7 70 Protein, Total 6.8 g/dL 6.4-8.2 70 Alkaline Phosphatase 56 U/L 10-118 70 Sgot (Ast) 26 U/L 3-30 70 SGPT (Alt) 34 U/L 7-40 70 Bilirubin, Total 1.13 mg/dL 0.30-1.20 70 Bilirubin, Direct 0.27 mg/dL 0.00-0.40 70 Bilirubin, Indirect 0.86 mg/dL 0.10-1.10 70 Lipid Profile 01/03/2006 Cholesterol, Total 146 mg/dL 120-200 70, 71 HDL Cholesterol 31 mg/dL Low 40-60 70 LDL Cholesterol, Calc. 89 mg/dL <130 70, 72 Triglycerides 132 mg/dL 70, 73 LDL/HDL Cholesterol 2.9 70, 74 Chol/HDL Cholesterol 4.7 70, 75 CBC 07/12/2005 WBC 6.3 x103 4.3-10.9 76 RBC 5.42 x106 4.20-5.60 76 Hemoglobin 16.4 g/dL 13.0-17.0 76 Hematocrit 49.2 % 39.0-50.0 76 MCV 90.6 fl 82.0-98.0 76 MCH 30.3 pg 27.5-33.5 76 MCHC 33.4 g/dL 32.0-36.0 76 RDW 12.9 % 11.5-14.5 76 Platelet Count 187 x103 130-400 76 MPV 8.7 fl 6.5-10.5 76 Segmented Neutrophils 68.3 % 44.0-74.0 76 Lymphocytes 23.3 % 15.0-45.0 76 Monocytes 4.1 % 2.0-13.0 76 Eosinophils 4.2 % 0.0-6.0 76 Basophils 0.1 % 0.0-2.0 76 Neutrophil Absolute 4.3 x103 1.4-7.0 76 Lymphocytes Absolute 1.5 x103 1.0-3.4 76 Monocyte Absolute 0.3 x103 0.2-1.0 76 Eosinophil Absolute 0.3 x103 0.0-0.5 76 Basophil Absolute 0.0 x103 0.0-0.2 76 Laboratory test finding 07/12/2005 GFR (Calculated) >60 76, 77 Creatinine Clearance 07/12/2005 Creatinine, Serum 1.3 mg/dL 0.6-1.5 76 Creatinine, 24 HR Urine 1.4 g/24hrs 1.3-2.6 76 Creatinine Clearance 72.3 mL/min 61.0-166.0 76 Total Volume, 24 Hour 2200 ml/24hrs 76 Laboratory test finding 07/12/2005 Sgot (Ast) 26 U/L 3-30 76 CK, Total 123 U/L 41-270 76 Homocysteine 10.07 umol/L 3.70-13.90 76 Lipid Profile 07/12/2005 Cholesterol, Total 131 mg/dL 120-200 76, 78 HDL Cholesterol 33 mg/dL Low 40-60 76 LDL Cholesterol, Calc. 75 mg/dL <130 76, 79 Triglycerides 114 mg/dL 76, 80 LDL/HDL Cholesterol 2.3 76, 81 Chol/HDL Cholesterol 4.0 76, 82 Protein 24 HR Urine 07/12/2005 Tot. Protein 24HR 110.0 mg/24hrs 42.0- 225.0 76 Urine Basic Metabolic Panel 07/12/2005 Glucose 100 mg/dL 70-100 76 BUN 25 mg/dL High 5-21 76 Creatinine, Serum 1.3 mg/dL 0.6-1.5 76 Sodium 141 mmol/L 136-146 76 Potassium 5.0 mmol/L 3.5-5.3 76 Chloride 108 mmol/L 98-110 76 Carbon Dioxide 27 mmol/L 20-32 76 Calcium 8.8 mg/dL 8.4-10.4 76 Laboratory test finding 01/11/2005 Sgot (Ast) 24 U/L 3-30 PSA 0.4 ng/ml 0.0-4.0 83 CK, Total 143 U/L 41-270 Hematocrit 50.6 % High 39.0-50.0 GFR (Calculated) >60 84 Lipid Profile 01/11/2005 Cholesterol, Total 151 mg/dL 120-200 85 HDL Cholesterol 32 mg/dL Low 40-60 LDL Cholesterol, Calc. 86 mg/dL <130 86 Triglycerides 166 mg/dL 87 LDL/HDL Cholesterol 2.7 88 .Chol/HDL Cholesterol 4.7 89 Basic Metabolic Panel 01/11/2005 Glucose 100 mg/dL 61-110 BUN 24 mg/dL High 5-21 Creatinine, Serum 1.3 mg/dL 0.6-1.5 Sodium 143 mmol/L 136-146 Potassium 4.6 mmol/L 3.5-5.3 Chloride 110 mmol/L High 98-107 Carbon Dioxide 25 mmol/L 20-32 Calcium 9.2 mg/dL 8.4-10.6 Lipid Profile 09/20/2004 Triglycerides 132 mg/dL 90 Cholesterol, Total 171 mg/dL 120.0 - 200.0 91 HDL Cholesterol 38 mg/dL Low 40.0 - 60.0 LDL Cholesterol, Calc. 107 mg/dL <130 92 LDL/HDL Cholesterol 2.8 93 Chol/HDL Cholesterol 4.5 94 Laboratory test finding 09/20/2004 Sedimentation Rate 5 MM/HR 0 - 15 CK, Total 134 U/L 41.0 - 270.0 Sgot (Ast) 29 U/L 3.0 - 30.0 Rheumatoid Factor (RF) <11.0 IU/mL 0 - 20 Antinuclear AB ([facility]rielle) NEGATIVE Negative 95 Protein Electro, Serum 09/20/2004 Protein, Total 7.0 g/dL 6.4 - 8.2 Albumin 4.7 3.2 - 5.6 Alpha 1 Globulin, Serum 0.2 g/dL 0.1 - 0.4 Alpha 2 Globulin, Serum 0.7 g/dL 0.4 - 1.2 Beta Globulin, Serum 0.7 g/dL 0.6 - 1.3 Gamma Globulin 0.8 g/dL 0.5 - 1.6 Globulin,Total 2.4 g/dL 2 - 4.5 A/G Ratio 2.1 High 0.7 - 2 Protein, Total 7.0 g/dL 6.4 - 8.2 Interpretation, Serum * Also Image 96 Creatinine Clearance 05/22/2004 Creatinine, 24 HR Urine 1.1 g/24hrs Low 1.3 - 2.6 Creatinine Clearance 60 mL/min Low 61.0 - 166.0 Total Volume, 24 Hour 1500 ml/24hrs Creatinine, Serum 1.3 mg/dL 0.6 - 1.5 Creatinine, Urine 75.3 mg/dL Laboratory test finding 05/22/2004 Protein, 24 HR Urine 150 mg/24hrs 42.0 - 225.0 Laboratory test finding 05/17/2004 Creatinine Clearance <pending> Tot. Protein 24HR Urine <pending> Comprehensive Metabolic 05/11/2004 Glucose 95 mg/dL 61.0 - 110.0 BUN 25 mg/dL High 5.0 - 21.0 Creatinine, Serum 1.3 mg/dL 0.6 - 1.5 Sodium 140 mmol/L 136.0 - 146.0 Potassium 4.3 mmol/L 3.5 - 5.3 Chloride 108 mmol/L High 98.0 - 107.0 Carbon Dioxide 22 mmol/L 20.0 - 32.0 Albumin 4.3 g/dL 3.5 - 4.7 Protein, Total 7.0 g/dL 6.4 - 8.2 Calcium 9.3 mg/dL 8.4 - 10.6 Alkaline Phosphatase 63 U/L 10.0 - 118.0 Sgot (Ast) 33 U/L High 3.0 - 30.0 SGPT (Alt) 84 U/L High 7.0 - 40.0 Bilirubin, Total 1.03 mg/dL 0.3 - 1.2 Lipid Profile 05/11/2004 Triglycerides 165 mg/dL 97 Cholesterol, Total 175 mg/dL 120.0 - 200.0 98 HDL Cholesterol 37 mg/dL Low 40.0 - 60.0 LDL Cholesterol, Calc. 105 mg/dL <130 99 LDL/HDL Cholesterol 2.8 100 Chol/HDL Cholesterol 4.7 101 CBC 05/11/2004 WBC 7.5 x10*3 4.3 - 10.9 RBC 5.23 x10*6 4.2 - 5.6 Hemoglobin 16.6 g/dL 13.0 - 17.0 Hematocrit 47.7 % 39.0 - 50.0 MCV 91.0 fl 82.0 - 98.0 MCH 31.6 pg 27.5 - 33.5 MCHC 34.8 g/dL 32.0 - 36.0 RDW 13.4 % 11.5 - 14.5 Platelet Count 171 x10*3 130.0 - 400.0 MPV 8.5 fl 6.5 - 10.5 Segmented Neutrophils 69.6 % 44.0 - 74.0 Lymphocytes 22.9 % 15.0 - 45.0 Monocytes 4.3 % 2.0 - 13.0 Eosinophils 2.6 % 0.0 - 6.0 Basophils 0.6 % 0.0 - 2.0 Neutrophil Absolute 5.2 x10*3 1.4 - 7.0 Lymphocytes Absolute 1.7 x10*3 1.0 - 3.4 Monocyte Absolute 0.3 x10*3 0.2 - 1.0 Eosinophil Absolute 0.2 x10*3 0.0 - 0.5 Basophil Absolute 0.0 x10*3 0.0 - 0.2 Laboratory test finding 05/11/2004 PSA 0.4 ng/ml 0.0 - 4.0 102 Thyrotropin (TSH) 1.420 uIU/ml 0.35 - 5.5 CK, Total 169 U/L 41.0 - 270.0 GFR (Calculated) >60 103 Ua - Non Micro (Fma New) 05/11/2004 Appearance CLEAR Color LT YELLOW Glucose - Bilirubin - Ketones - SP Grav 1.015 Blood - PH 5.5 Protein - Urobil 0.2 Nitrite - Leukocytes - Basic Metabolic Panel 10/12/2002 Glucose 102 mg/dL 61.0 - 110.0 BUN 24 mg/dL High 5.0 - 21.0 Creatinine, Serum 1.1 mg/dL 0.6 - 1.5 Sodium 140 mmol/L 135.0 - 146.0 Potassium 4.6 mmol/L 3.6 - 5.0 Chloride 107 mmol/L 98.0 - 108.0 Carbon Dioxide 30 mmol/L 23.0 - 33.0 Calcium 9.1 mg/dL 8.3 - 10.3 Lipid Profile 10/12/2002 Triglycerides 78 mg/dL 23.0 - 253.0 Cholesterol, Total 157 mg/dL 120.0 - 200.0 104 HDL Cholesterol 39 mg/dL 35.0 - 9999.0 LDL Cholesterol, Calc. 102 mg/dL <130 105 LDL/HDL Cholesterol 2.6 106 Chol/HDL Cholesterol 4.0 107 Hepatic (Liver) Panel 10/12/2002 Albumin 3.7 g/dL Low 3.8 - 4.6 Protein, Total 6.7 g/dL 6.2 - 8.0 Alkaline Phosphatase 62 U/L 45.0 - 120.0 Sgot (Ast) 35 U/L 9.0 - 43.0 SGPT (Alt) 67 U/L High 11.0 - 51.0 Bilirubin, Total 1.10 mg/dL 0.2 - 1.3 Bilirubin, Direct 0.20 mg/dL 0.0 - 0.6 Bilirubin, Indirect 0.90 mg/dL 0.1 - 1.1 1 NON-FASTING 2 consistent w/ previous results 3 consistent w/ previous results 4 RESULTS VERIFIED BY REPEAT ANALYSIS 5 consistent w/ previous results 6 consistent w/ previous results 7 consistent w/ previous results 8 consistent w/ previous results 9 RUN DATE: 01/05/15 [facility] LAB LIVE PAGE 1 RUN TIME: [address] [place] [id number] Specimen Inquiry Name: BROOKLYNN CHRISTENSEN : [address]: Jean-Claude Magaña MD Acct: [id number] Unit: [id number] AGE: 64 Location: [facility] Re01/04/15 SEX: M Status: REG REF SPEC: [id number] SHAYNA: 01/04/[address]: Jean-Claude Magaña MD REQ: [id number] RECD: 01/04/15 STATUS: RES _ SOURCE: STOOL SPDESC: ORDERED: E.coli O157:H7, Stool Culture, O P: Giar/Crypt QUERIES: Provider Requisition # [id number] Procedure Result Verified Site E.coli O157:H7 Culture PENDING Stool Culture PENDING Shiga Toxin 1 2 PENDING O P: Giardia/Cryptospor Screen Final 01/05/15- 1411 ML Organism 1 Neg Cryptosporidium/Giardia Giardia and cryptosporidium antigen testing performed by enzyme immunoassay. If patient is immunocompromised or has traveled to or is from a developing country, a full ova and parasite exam with microscopic (OPMIC) is recommended. All samples will be held one month in case full ova and parasite testing is requested. Contact the Microbiology Department at [phone]. TEST LIMITATIONS: As with all diagnostic procedures, the results obtained should be used in conjunction with other clinical information available the physician, including confirmation by another method. Negative results can occur in samples containing antigen below lower limits of detection of the assay. One negative specimen does not rule out the possibility of a parasitic infection. To improve detection it is recommended that three specimens be collected on CONTINUED ON NEXT PAGE * ML=Testing performed at Main Lab DEPARTMENT OF PATHOLOGY, [facility] [employer] [place] [id number] Shabbir Bob M.D. Director [facility] # [id number] RUN DATE: 01/05/15 [facility] LAB LIVE PAGE 2 RUN TIME: [address] [place] [address] Specimen Inquiry Patient: BROOKLYNN CHRISTENSEN [id number] (Continued) Specimen: [id number] Collected: 01/04/15 Received: 01/04/15 (Continued) Procedure Result Verified Site O P: Giardia/Cryptospor Screen Final (continued) 01/05/15- 1411 separate days over a period of not more than seven days. The use of colonic washes, aspirates or other diluted sample types has not been established and could affect the performance of the assay. Stool samples contaminated with an oily or particulate base (eg. Barium, mineral oil etc.) could interfere with the test and are not recommended. * ML - MAIN LAB ([facility]) . END OF REPORT * ML=Testing performed at Main Lab DEPARTMENT OF PATHOLOGY, [facility] [employer] [place] [address] Shabbir Bob M.D. Director [facility] # [id number] RUN DATE: 01/05/15 [facility] LAB LIVE PAGE 1 RUN TIME: [address] [facility] [employer] [place], [place] [address] Specimen Inquiry Name: BROOKLYNN CHRISTENSEN : [address]: Jean-Claude Magaña MD Acct: [id number] Unit: [id number] AGE: 64 Location: [facility] Re01/04/15 SEX: M Status: REG REF SPEC: [id number] SHAYNA: 01/04/[address] [facility] [address]: Jean-Claude Magaña MD REQ: [id number] RECD: 01/04/15 STATUS: RES _ SOURCE: STOOL SPDESC: ORDERED: E.coli O157:H7, Stool Culture, O P: Giar/Crypt QUERIES: Provider Requisition # [id number] Procedure Result Verified Site E.coli O157:H7 Culture PENDING Stool Culture PENDING Shiga Toxin 1 2 Final 01/05/15- 1420 ML Organism 1 Negative Shiga Toxin 1 2 Immunochromatographic Assay O P: Giardia/Cryptospor Screen Final 01/05/15- 1411 ML Organism 1 Neg Cryptosporidium/Giardia Giardia and cryptosporidium antigen testing performed by enzyme immunoassay. If patient is immunocompromised or has traveled to or is from a developing country, a full ova and parasite exam with microscopic (OPMIC) is recommended. All samples will be held one month in case full ova and parasite testing is requested. Contact the Microbiology Department at [phone]. TEST LIMITATIONS: As with all diagnostic procedures, the results obtained should be used in conjunction with other clinical information available the physician, including confirmation by another method. Negative results can occur in samples containing antigen below lower limits of detection of the CONTINUED ON NEXT PAGE * ML=Testing performed at Main Lab DEPARTMENT OF PATHOLOGY, [facility] [employer] [place], [place] [address] Shabbir Bob M.D. Director [facility] # [id number] RUN DATE: 01/05/15 [facility] LAB LIVE PAGE 2 RUN TIME: [address] [facility] [employer] [place], [place] [address] Specimen Inquiry Patient: BROOKLYNN CHRISTENSEN Therese [id number] (Continued) Specimen: [id number] Collected: 01/04/15 Received: 01/04/15 (Continued) Procedure Result Verified Site O P: Giardia/Cryptospor Screen Final (continued) 01/05/15- 1410 assay. One negative specimen does not rule out the possibility of a parasitic infection. To improve detection it is recommended that three specimens be collected on separate days over a period of not more than seven days. The use of colonic washes, aspirates or other diluted sample types has not been established and could affect the performance of the assay. Stool samples contaminated with an oily or particulate base (eg. Barium, mineral oil etc.) could interfere with the test and are not recommended. * ML - MAIN LAB ([facility]) . END OF REPORT * ML=Testing performed at Main Lab DEPARTMENT OF PATHOLOGY, [facility] [employer] [place], [place] [address] Shabbir Bob M.D. Director [facility] # [id number] RUN DATE: 01/06/15 [facility] LAB LIVE PAGE 1 RUN TIME: [address] [facility] [employer] [place], [place] [address] Specimen Inquiry Name: BROOKLYNN CHRISTENSEN : [address]: Jean-Claude Magaña MD Acct: [id number] Unit: [id number] AGE: 64 Location: [facility] Re01/04/15 SEX: M Status: REG REF SPEC: [id number] SHAYNA: 01/04/[address]: Jean-Claude Magaña MD REQ: [id number] RECD: 01/04/15 STATUS: COMP _ SOURCE: STOOL SPDESC: ORDERED: E.coli O157:H7, Stool Culture, O P: Yesi/Maurilio QUERIES: Provider Requisition # [id number] Procedure Result Verified Site E.coli O157:H7 Culture Final 01/06/15- 25 ML E. coli 0157 Culture Negative Stool Culture Final 01/06/15- 25 ML Result No enteric pathogens isolated Testing for Salmonella, Shigella, Aeromonas, Plesiomonas, Yersinia and Campylobacter are included in a Stool Culture. Vibrio spp not routinely tested for in a stool culture. If testing is desired, please request specifically when placing test order. Sensitivities not routinely performed on stool isolates, as antibiotics may prolong the carriage rate of bacteria. Please contact the microbiology lab if sensitivities are required. Shiga Toxin 1 2 Final 01/05/15- 1420 ML Organism 1 Negative Shiga Toxin 1 2 Immunochromatographic Assay CONTINUED ON NEXT PAGE * ML=Testing performed at Main Lab DEPARTMENT OF PATHOLOGY, [facility] [employer] [place], [place] [address] Shabbir Bob M.D. Director [facility] # [id number] RUN DATE: 01/06/15 [facility] LAB LIVE PAGE 2 RUN TIME: [address] [facility] [employer] [place], [place] [address] Specimen Inquiry Patient: BROOKLYNN CHRISTENSEN [id number] (Continued) Specimen: [id number] Collected: 01/04/15 Received: 01/04/15-924 (Continued) Procedure Result Verified Site Shiga Toxin 1 2 Final (continued) 01/05/151419 O P: Giardia/Cryptospor Screen Final 01/05/15- 1410 ML Organism 1 Neg Cryptosporidium/Giardia Giardia and cryptosporidium antigen testing performed by enzyme immunoassay. If patient is immunocompromised or has traveled to or is from a developing country, a full ova and parasite exam with microscopic (OPMIC) is recommended. All samples will be held one month in case full ova and parasite testing is requested. Contact the Microbiology Department at [phone]. TEST LIMITATIONS: As with all diagnostic procedures, the results obtained should be used in conjunction with other clinical information available the physician, including confirmation by another method. Negative results can occur in samples containing antigen below lower limits of detection of the assay. One negative specimen does not rule out the possibility of a parasitic infection. To improve detection it is recommended that three specimens be collected on separate days over a period of not more than seven days. The use of colonic washes, aspirates or other diluted sample types has not been established and could affect the performance of the assay. Stool samples contaminated with an oily or particulate base (eg. Barium, mineral oil etc.) could interfere with the test and are not recommended. * ML - MAIN LAB ([facility]) . END OF REPORT * ML=Testing performed at Main Lab DEPARTMENT OF PATHOLOGY, [address] [place] [address] Shabbir Bob M.D. Director [facility] # [id number] 12 INVALID 13 FASTING; 2 sst; 1 lav; 1 urine 14 CHOL/HDL Risk Ratio Levels MALE FEMALE 1/2 X Average 3.4 3.3 Average 5.0 4.4 2 X Average 9.5 7.0 3 X Average 24.0 11.0 15 Optimal under 100 mg/dl Near or above Optimal 100 - 129 mg/dl Borderline High 130 - 159 mg/dl High 160 - 189 mg/dl Very High above 190 mg/dl 16 LDL/HDL Risk Ratio Levels MALE FEMALE 1/2 X Average 1.0 1.5 Average 3.6 3.2 2 X Average 6.3 5.0 3 X Average 8.0 6.1 17 . Serum PSA results should be used only in conjunction with information available from the clinical evaluation of the patient and other diagnostic procedures. Values obtained with different assay methods or kits cannot be used interchangeably. Results obtained using [employer] ICMA methodology. 18 >59 mL/min/1.73m2 19 >59 mL/min/1.73m2 Note: Persistent reduction for 3 months or more in an eGFR <60 mL/min/1.73m2 defines CKD. Patients with eGFR values >=60 mL/min/1.73m2 may also have CKD if evidence of persistent proteinuria is present. Additional information may be found at [email or web address]. 20 FASTING; 2sst,1lav,1urine 21 CHOL/HDL Risk Ratio Levels MALE FEMALE 1/2 X Average 3.4 3.3 Average 5.0 4.4 2 X Average 9.5 7.0 3 X Average 24.0 11.0 22 Optimal under 100 mg/dl Near or above Optimal 100 - 129 mg/dl Borderline High 130 - 159 mg/dl High 160 - 189 mg/dl Very High above 190 mg/dl 23 LDL/HDL Risk Ratio Levels MALE FEMALE 1/2 X Average 1.0 1.5 Average 3.6 3.2 2 X Average 6.3 5.0 3 X Average 8.0 6.1 24 Microscopic performed. Elements observed are listed. If no elements are listed,the Microscopic is negative. 25 >59 mL/min/1.73m2 26 >59 mL/min/1.73m2 Note: Persistent reduction for 3 months or more in an eGFR <60 mL/min/1.73m2 defines CKD. Patients with eGFR values >=60 mL/min/1.73m2 may also have CKD if evidence of persistent proteinuria is present. Additional information may be found at [email or web address]. 27 ---- RUN DATE: 11/26/11 [facility] NMI LIVE PAGE 1 RUN TIME: 1655 Specimen Inquiry RUN USER: INTERFACE -- Name: BROOKLYNN CHRISTENSEN Status: REG REF Re11/23/11 Age/Sex: 60/M Unit#: [id number] Location: [facility] : 49 -- Specimen: [id number] SOUT Spec Date:11/23/11- Subm Dr: Carlos washington MD Spec Type: SURGICAL P Received:11/23/11-6800 Copies to: Jean-Claude Magaña MD SPECIMEN BIOPSY COLON POLYP AT 20 CM. HISTORY POST-OP DIAGNOSIS: To cecum, polp at 20 cm., tics CLINICAL INFORMATION: History of polyps; screening GROSS DESCRIPTION The specimen is received in formalin labelled Brooklynn Christensen, Biopsy Colon Polyp at 20 cm., and consists of a fragment of yellow tissue measuring 0.2 x 0.2 x 0.2 cm. Submitted entirely, one cassette. DIAGNOSIS Colon, 20 cm., biopsy: Inflamed hyperplastic polyp. Signed Electronically by: SHABBIR BOB MD 11/26/11 7461 -- -- DEPARTMENT OF PATHOLOGY, [address] [place] [address] [facility] Permit #[id number] Shabbir Bob M.D. Director Jefferson Pringle M.D. Risk Control Officer Dir meng -- 28 Negative <0.91 Equivocal 0.91 - 1.09 Positive >1.09 Note: The [facility] currently advises that Western blot testing be performed following all equivocal or positive EIA results. Final diagnosis should include appropriate clinical findings and a positive EIA which is also positive by Western blot. 29 Negative <0.91 Equivocal 0.91 - 1.09 Positive >1.09 . Note: IgM levels may peak at 3-6 weeks post infection, then gradually decline. FDA currently advises that Western Blot testing be performed following all equivocal or positive EIA results. Final diagnosis should include appropriate clinical findings and a positive EIA which is also positive by Western Blot. 30 FASTING; 3 sst 1 lav aliquot urine total volume 2000mls 31 CHOL/HDL Risk Ratio Levels MALE FEMALE 1/2 X Average 3.4 3.3 Average 5.0 4.4 2 X Average 9.5 7.0 3 X Average 24.0 11.0 32 Optimal under 100 mg/dl Near or above Optimal 100 - 129 mg/dl Borderline High 130 - 159 mg/dl High 160 - 189 mg/dl Very High above 190 mg/dl 33 LDL/HDL Risk Ratio Levels MALE FEMALE 1/2 X Average 1.0 1.5 Average 3.6 3.2 2 X Average 6.3 5.0 3 X Average 8.0 6.1 34 . Serum PSA results should be used only in conjunction with information available from the clinical evaluation of the patient and other diagnostic procedures. Values obtained with different assay methods or kits cannot be used interchangeably. Results obtained using [employer] ICMA methodology. 35 Creatinine Clearance results are based on a standard body surface area of 1.73 sq meters. 36 >59 mL/min/1.73m2 37 >59 mL/min/1.73m2 Note: Persistent reduction for 3 months or more in an eGFR <60 mL/min/1.73m2 defines CKD. Patients with eGFR values >=60 mL/min/1.73m2 may also have CKD if evidence of persistent proteinuria is present. Additional information may be found at [email or web address]. 38 FASTING; 4 SST 39 CHOL/HDL Risk Ratio Levels MALE FEMALE 1/2 X Average 3.4 3.3 Average 5.0 4.4 2 X Average 9.5 7.0 3 X Average 24.0 11.0 40 Optimal under 100 mg/dl Near or above Optimal 100 - 129 mg/dl Borderline High 130 - 159 mg/dl High 160 - 189 mg/dl Very High above 190 mg/dl 41 LDL/HDL Risk Ratio Levels MALE FEMALE 1/2 X Average 1.0 1.5 Average 3.6 3.2 2 X Average 6.3 5.0 3 X Average 8.0 6.1 42 mL/min/1.73m2 . Normal Function or Mild Renal Disease, if clinically at risk: >or=60 Moderately decreased: 30 - 59 Severely decreased: 15 - 29 Renal Failure: <15 . Please note that the MDRD equation requires an additional adjustment for -Americans (multiply the GFR result by 1.210). . Glomerular Filtration Rate (GFR) is estimated based on the MDRD equation, which assumes a steady state for creatinine (Gayathri Int Med 139/2 137-149, 2003), as recommended by the National Kidney Disease Education Program in conjunction with the National Institutes of Health and the National Kidney Foundation. . Clinical conditions in which it may be necessary to measure GFR by using clearance methods include extremes of age and body size, severe malnutrition or obesity, diseases of skeletal muscle, paraplegia or quadriplegia, vegetarian diet, rapidly changing kidney function, and calculation of the dose of potentially toxic drugs that are excreted by the kidneys. 43 . Serum PSA results should be used only in conjunction with information available from the clinical evaluation of the patient and other diagnostic procedures. Values obtained with different assay methods or kits cannot be used interchangeably. Results obtained using [employer] ICMA methodology. 44 FASTING; 1 URINE CONTAINER VOLUME:2200 MLS; 2 SST 45 Cholesterol Risk Levels (NIH) Recommended: under 200 mg/dl Borderline : 200-239 mg/dl High Risk : Above 240 mg/dl 46 The National Cholesterol Education Program recommends the following ranges for LDL Cholesterol: Optimal under 100 mg/dl Near or above Optimal 100 - 129 mg/dl Borderline High 130 - 159 mg/dl High 160 - 189 mg/dl Very High above 190 mg/dl 47 Triglyceride Risk Levels: Normal : <150 mg/dl Borderline : 150-199 mg/dl High : 200-499 mg/dl Very High : >500 mg/dl 48 LDL/HDL Risk Ratio Levels MALE FEMALE 1/2 X Average 1.00 1.47 Average 3.55 3.22 2 X Average 6.25 5.03 3 X Average 7.99 6.14 49 CHOL/HDL Risk Ratio Levels MALE FEMALE 1/2 X Average 3.4 3.3 Average 5.0 4.4 2 X Average 9.5 7.0 3 X Average 24.0 11.0 50 mL/min/1.73m2 . Normal Function or Mild Renal Disease, if clinically at risk: >or=60 Moderately decreased: 30 - 59 Severely decreased: 15 - 29 Renal Failure: <15 . Please note that the MDRD equation requires an additional adjustment for -Americans (multiply the GFR result by 1.210). . Glomerular Filtration Rate (GFR) is estimated based on the MDRD equation, which assumes a steady state for creatinine (Gayathri Int Med 139/2 137-149, 2003), as recommended by the National Kidney Disease Education Program in conjunction with the National Institutes of Health and the National Kidney Foundation. . Clinical conditions in which it may be necessary to measure GFR by using clearance methods include extremes of age and body size, severe malnutrition or obesity, diseases of skeletal muscle, paraplegia or quadriplegia, vegetarian diet, rapidly changing kidney function, and calculation of the dose of potentially toxic drugs that are excreted by the kidneys. 51 FASTING; 2 SST; 1 LAV 52 Cholesterol Risk Levels (NIH) Recommended: under 200 mg/dl Borderline : 200-239 mg/dl High Risk : Above 240 mg/dl 53 The National Cholesterol Education Program recommends the following ranges for LDL Cholesterol: Optimal under 100 mg/dl Near or above Optimal 100 - 129 mg/dl Borderline High 130 - 159 mg/dl High 160 - 189 mg/dl Very High above 190 mg/dl 54 Triglyceride Risk Levels: Normal : <150 mg/dl Borderline : 150-199 mg/dl High : 200-499 mg/dl Very High : >500 mg/dl 55 LDL/HDL Risk Ratio Levels MALE FEMALE 1/2 X Average 1.00 1.47 Average 3.55 3.22 2 X Average 6.25 5.03 3 X Average 7.99 6.14 56 CHOL/HDL Risk Ratio Levels MALE FEMALE 1/2 X Average 3.4 3.3 Average 5.0 4.4 2 X Average 9.5 7.0 3 X Average 24.0 11.0 57 . Serum PSA results should be used only in conjunction with information available from the clinical evaluation of the patient and other diagnostic procedures. Values obtained with different assay methods or kits cannot be used interchangeably. Results obtained using [employer] ICMA methodology. 58 < or=0.80 Negative 0.81 - 1.20 Equivocal >1.20 Positive 59 mL/min/1.73m2 . Normal Function or Mild Renal Disease, if clinically at risk: >or=60 Moderately decreased: 30 - 59 Severely decreased: 15 - 29 Renal Failure: <15 . Please note that the MDRD equation requires an additional adjustment for -Americans (multiply the GFR result by 1.210). . Glomerular Filtration Rate (GFR) is estimated based on the MDRD equation, which assumes a steady state for creatinine (Gayathri Int Med 139/2 137-149, 2003), as recommended by the National Kidney Disease Education Program in conjunction with the National Institutes of Health and the National Kidney Foundation. . Clinical conditions in which it may be necessary to measure GFR by using clearance methods include extremes of age and body size, severe malnutrition or obesity, diseases of skeletal muscle, paraplegia or quadriplegia, vegetarian diet, rapidly changing kidney function, and calculation of the dose of potentially toxic drugs that are excreted by the kidneys. 60 1 SST,1 LAV,URINE 61 Cholesterol Risk Levels (NIH) Recommended: under 200 mg/dl Borderline : 200-239 mg/dl High Risk : Above 240 mg/dl 62 The National Cholesterol Education Program recommends the following ranges for LDL Cholesterol: Optimal under 100 mg/dl Near or above Optimal 100 - 129 mg/dl Borderline High 130 - 159 mg/dl High 160 - 189 mg/dl Very High above 190 mg/dl 63 Triglyceride Risk Levels: Normal : <150 mg/dl Borderline : 150-199 mg/dl High : 200-499 mg/dl Very High : >500 mg/dl 64 LDL/HDL Risk Ratio Levels MALE FEMALE 1/2 X Average 1.00 1.47 Average 3.55 3.22 2 X Average 6.25 5.03 3 X Average 7.99 6.14 65 CHOL/HDL Risk Ratio Levels MALE FEMALE 1/2 X Average 3.4 3.3 Average 5.0 4.4 2 X Average 9.5 7.0 3 X Average 24.0 11.0 66 . Serum PSA results should be used only in conjunction with information available from the clinical evaluation of the patient and other diagnostic procedures. Values obtained with different assay methods or kits cannot be used interchangeably. Results obtained using [employer] ICMA methodology. 67 mL/min/1.73m2 . Normal Function or Mild Renal Disease, if clinically at risk: >or=60 Moderately decreased: 30 - 59 Severely decreased: 15 - 29 Renal Failure: <15 . Please note that the MDRD equation requires an additional adjustment for -Americans (multiply the GFR result by 1.210). . Glomerular Filtration Rate (GFR) is estimated based on the MDRD equation, which assumes a steady state for creatinine (Gayathri Int Med 139/2 137-149, 2003), as recommended by the National Kidney Disease Education Program in conjunction with the National Institutes of Health and the National Kidney Foundation. . Clinical conditions in which it may be necessary to measure GFR by using clearance methods include extremes of age and body size, severe malnutrition or obesity, diseases of skeletal muscle, paraplegia or quadriplegia, vegetarian diet, rapidly changing kidney function, and calculation of the dose of potentially toxic drugs that are excreted by the kidneys. . 68 ADD TO [id number] ADD TO SPECIMEN COLLECTED 01/03/06 69 . Serum PSA results should be used only in conjunction with information available from the clinical evaluation of the patient and other diagnostic procedures. Values obtained with different assay methods or kits cannot be used interchangeably. Results obtained using [employer] ICMA methodology. . 70 FASTING; 1SST 71 Cholesterol Risk Levels (NIH) Recommended: under 200 mg/dl Borderline : 200-239 mg/dl High Risk : Above 240 mg/dl . 72 The National Cholesterol Education Program recommends the following ranges for LDL Cholesterol: Optimal under 100 mg/dl Near or above Optimal 100 - 129 mg/dl Borderline High 130 - 159 mg/dl High 160 - 189 mg/dl Very High above 190 mg/dl . 73 Triglyceride Risk Levels: Normal : <150 mg/dl Borderline : 150-199 mg/dl High : 200-499 mg/dl Very High : >500 mg/dl . 74 LDL/HDL Risk Ratio Levels MALE FEMALE 1/2 X Average 1.00 1.47 Average 3.55 3.22 2 X Average 6.25 5.03 3 X Average 7.99 6.14 . 75 CHOL/HDL Risk Ratio Levels MALE FEMALE 1/2 X Average 3.4 3.3 Average 5.0 4.4 2 X Average 9.5 7.0 3 X Average 24.0 11.0 . 76 FASTING total volume 2200ml 77 mL/min/1.73m2 . Normal Function or Mild Renal Disease, if clinically at risk: >or=60 Moderately decreased: 30 - 59 Severely decreased: 15 - 29 Renal Failure: <15 . Please note that the MDRD equation requires an additional adjustment for -Americans (multiply the GFR result by 1.210). . Glomerular Filtration Rate (GFR) is estimated based on the MDRD equation, which assumes a steady state for creatinine (Gayathri Int Med 139/2 137-149, 2002), as recommended by the National Kidney Disease Education Program in conjunction with the National Institutes of Health and the National Kidney Foundation. . Clinical conditions in which it may be necessary to measure GFR by using clearance methods include extremes of age and body size, severe malnutrition or obesity, diseases of skeletal muscle, paraplegia or quadriplegia, vegetarian diet, rapidly changing kidney function, and calculation of the dose of potentially toxic drugs that are excreted by the kidneys. . 78 Cholesterol Risk Levels (NIH) Recommended: under 200 mg/dl Borderline : 200-239 mg/dl High Risk : Above 240 mg/dl . 79 The National Cholesterol Education Program recommends the following ranges for LDL Cholesterol: Optimal under 100 mg/dl Near or above Optimal 100 - 129 mg/dl Borderline High 130 - 159 mg/dl High 160 - 189 mg/dl Very High above 190 mg/dl . 80 Triglyceride Risk Levels: Normal : <150 mg/dl Borderline : 150-199 mg/dl High : 200-499 mg/dl Very High : >500 mg/dl . 81 LDL/HDL Risk Ratio Levels MALE FEMALE 1/2 X Average 1.00 1.47 Average 3.55 3.22 2 X Average 6.25 5.03 3 X Average 7.99 6.14 . 82 CHOL/HDL Risk Ratio Levels MALE FEMALE 1/2 X Average 3.4 3.3 Average 5.0 4.4 2 X Average 9.5 7.0 3 X Average 24.0 11.0 . 83 . Serum PSA results should be used only in conjunction with information available from the clinical evaluation of the patient and other diagnostic procedures. Values obtained with different assay methods or kits cannot be used interchangeably. Results obtained using [employer] ICMA methodology. . 84 mL/min/1.73m2 . Normal Function or Mild Renal Disease, if clinically at risk: >or=60 Moderately decreased: 30 - 59 Severely decreased: 15 - 29 Renal Failure: <15 . Please note that the MDRD equation requires an additional adjustment for -Americans (multiply the GFR result by 1.210). . Glomerular Filtration Rate (GFR) is estimated based on the MDRD equation, which assumes a steady state for creatinine (Gayathri Int Med 139/2 137-149, 2003), as recommended by the National Kidney Disease Education Program in conjunction with the National Institutes of Health and the National Kidney Foundation. . Clinical conditions in which it may be necessary to measure GFR by using clearance methods include extremes of age and body size, severe malnutrition or obesity, diseases of skeletal muscle, paraplegia or quadriplegia, vegetarian diet, rapidly changing kidney function, and calculation of the dose of potentially toxic drugs that are excreted by the kidneys. . 85 Cholesterol Risk Levels (NIH) Recommended: under 200 mg/dl Borderline : 200-239 mg/dl High Risk : Above 240 mg/dl . 86 The National Cholesterol Education Program recommends the following ranges for LDL Cholesterol: Optimal under 100 mg/dl Near or above Optimal 100 - 129 mg/dl Borderline High 130 - 159 mg/dl High 160 - 189 mg/dl Very High above 190 mg/dl . 87 Triglyceride Risk Levels: Normal : <150 mg/dl Borderline : 150-199 mg/dl High : 200-499 mg/dl Very High : >500 mg/dl . 88 LDL/HDL Risk Ratio Levels MALE FEMALE 1/2 X Average 1.00 1.47 Average 3.55 3.22 2 X Average 6.25 5.03 3 X Average 7.99 6.14 . 89 CHOL/HDL Risk Ratio Levels MALE FEMALE 1/2 X Average 3.4 3.3 Average 5.0 4.4 2 X Average 9.5 7.0 3 X Average 24.0 11.0 . 90 Triglyceride Risk Levels: Normal : <150 mg/dl Borderline : 150-199 mg/dl High : 200-499 mg/dl Very High : >500 mg/dl . 91 Cholesterol Risk Levels (NIH) Recommended: under 200 mg/dl Borderline : 200-239 mg/dl High Risk : Above 240 mg/dl . 92 The National Cholesterol Education Program recommends the following ranges for LDL Cholesterol: Optimal under 100 mg/dl Near or above Optimal 100 - 129 mg/dl Borderline High 130 - 159 mg/dl High 160 - 189 mg/dl Very High above 190 mg/dl . 93 LDL/HDL Risk Ratio Levels MALE FEMALE 1/2 X Average 1.00 1.47 Average 3.55 3.22 2 X Average 6.25 5.03 3 X Average 7.99 6.14 . 94 CHOL/HDL Risk Ratio Levels MALE FEMALE 1/2 X Average 3.4 3.3 Average 5.0 4.4 2 X Average 9.5 7.0 3 X Average 24.0 11.0 . 95 (Performed by Enzyme Immunoassay, EIA) 96 Normal serum protein electrophoresis. Reviewed by Dr. Denys Timmons, Pathologist. 97 Triglyceride Risk Levels: Normal : <150 mg/dl Borderline : 150-199 mg/dl High : 200-499 mg/dl Very High : >500 mg/dl . 98 Cholesterol Risk Levels (NIH) Recommended: under 200 mg/dl Borderline : 200-239 mg/dl High Risk : Above 240 mg/dl . 99 The National Cholesterol Education Program recommends the following ranges for LDL Cholesterol: Optimal under 100 mg/dl Near or above Optimal 100 - 129 mg/dl Borderline High 130 - 159 mg/dl High 160 - 189 mg/dl Very High above 190 mg/dl . 100 LDL/HDL Risk Ratio Levels MALE FEMALE 1/2 X Average 1.00 1.47 Average 3.55 3.22 2 X Average 6.25 5.03 3 X Average 7.99 6.14 . 101 CHOL/HDL Risk Ratio Levels MALE FEMALE 1/2 X Average 3.4 3.3 Average 5.0 4.4 2 X Average 9.5 7.0 3 X Average 24.0 11.0 . 102 . Serum PSA results should be used only in conjunction with information available from the clinical evaluation of the patient and other diagnostic procedures. Values obtained with different assay methods or kits cannot be used interchangeably. Results obtained using [employer] ICMA methodology. . 103 . Normal Function or Mild Renal Disease, if clinically at risk: >or=60 Moderately decreased: 30 - 59 Severely decreased: 15 - 29 Renal Failure: <15 . Please note that the MDRD equation requires an additional adjustment for -Americans (multiply the GFR result by 1.210). . Glomerular Filtration Rate (GFR) is estimated based on the MDRD equation, which assumes a steady state for creatinine (Gayathri Int Med 139/2 137-149, 2003), as recommended by the National Kidney Disease Education Program in conjunction with the National Institutes of Health and the National Kidney Foundation. . Clinical conditions in which it may be necessary to measure GFR by using clearance methods include extremes of age and body size, severe malnutrition or obesity, diseases of skeletal muscle, paraplegia or quadriplegia, vegetarian diet, rapidly changing kidney function, and calculation of the dose of potentially toxic drugs that are excreted by the kidneys. . 104 Cholesterol Risk Levels (NIH) Recommended: under 200 mg/dl Borderline : 200-239 mg/dl High Risk : Above 240 mg/dl . 105 LDL Cholesterol Risk Levels (NIH) Recommended: under 130 mg/dl Borderline: 131 - 159 mg/dl High Risk: above 160 mg/dl . 106 LDL/HDL Risk Ratio Levels MALE FEMALE 1/2 X Average 1.00 1.47 Average 3.55 3.22 2 X Average 6.25 5.03 3 X Average 7.99 6.14 . 107 CHOL/HDL Risk Ratio Levels MALE FEMALE 1/2 X Average 3.4 3.3 Average 5.0 4.4 2 X Average 9.5 7.0 3 X Average 24.0 11.0 . Procedures Date CPT Code Description Status 07/29/2018 67850 Pulse Oximetry Completed 11/23/2011 Colonoscopy Completed 09/06/2011 91077 Vision Test- screening test of visual acuity, Completed quantitative, bila 09/06/2011 20045 Electrocardiogram Complete Completed 02/27/2011 55993 Vision Test- screening test of visual acuity, Completed quantitative, bila 08/16/2009 39857 Electrocardiogram Complete Completed 05/11/2004 40266 Electrocardiogram Complete Completed 10/01/1997 30260 Electrocardiogram Complete Completed Encounters Type Date Location Provider CPT E/M Dx Office Visit 04/15/2018 9:40a Main Office Jean-Claude Magaña M.D. 98065 K57.32 I10 E78.4 I25.10 N40.0 Q61.3 Office Visit 10/30/2016 2:20p Main Office Jean-Claude Magaña M.D. 77961 I25.10 E78.4 Q61.3 I10 N40.0 Z12.11 Office Visit 02/23/2016 2:40p Main Office Jean-Claude Magaña M.D. 35686 I25.10 E78.2 Q61.3 I10 N40.0 Z00.00 Office Visit 12/28/2014 6:20p Main Office Jean-Claude Magaña M.D. 10568 414.00 272.4 753.12 600.00 787.91 272.1 Office Visit 11/12/2013 9:20a Main Office Jean-Claude Magaña M.D. 71750 414.00 272.4 753.12 401.1 600.00 V76.51 Office Visit 03/13/2012 8:40a Main Office Jean-Claude Magaña M.D. 05864 414.00 272.4 753.12 V76.41 789.09 Office Visit 10/23/2011 12:00p Main Office Jean-Claude Magaña M.D. 16410 401.1 414.00 Office Visit 09/06/2011 9:00a Main Office Jean-Claude Magaña M.D. 61258 753.12 272.4 414.00 401.1 600.00 562.11 V12.72 466.0 V06.5 Office Visit 02/27/2011 2:20p [facility] Jonathon Espinal M.D. 83824 V70.3 Office Visit 06/19/2010 10:40a Main Office Jonathon Espinal M.D. 77767 784.0 Office Visit 02/14/2010 10:40a Main Office Mary Arriaga M.D. 58794 562.11 465.9 753.12 305.1 Office Visit 08/16/2009 6:00p Main Office Jean-Claude Magaña M.D. 75787 272.4 414.00 401.1 753.12 600.00 V76.41 Office Visit 07/23/2008 2:40p [facility] Jonathon Espinal M.D. 35203 989.5 Office Visit 10/23/2007 8:20a Main Office Jean-Claude Magaña M.D. 37834 414.00 272.4 401.1 753.12 V76.41 719.49 600.00 Office Visit 05/07/2007 6:45p Main Office Monica Colin 95154 789.09 562.11 782.1 Office Visit 02/26/2007 12:20p Main Office Jonathon Espinal M.D. 43901 789.05 Office Visit 02/07/2007 1:20p Main Office Jean-Claude Magaña M.D. 50622 414.00 272.4 401.1 753.12 V76.41 V76.44 697.0 Office Visit 01/03/2006 10:00a Main Office Jean-Claude Magaña M.D. 47232 414.00 272.4 401.1 753.12 729.1 Office Visit 07/03/2005 8:30p Main Office Jean-Claude Magaña M.D. 21801 272.4 414.00 753.12 401.1 729.1 Office Visit 06/12/2005 2:45p Main Office Jean-Claude Magaña M.D. 19960 414.00 401.1 729.1 753.12 Office Visit 01/11/2005 8:00a Main Office Jean-Claude Magaña M.D. 11339 414.00 272.4 753.12 401.1 Office Visit 09/12/2004 1:45p Main Office Jean-Claude Magaña M.D. 37990 719.40 753.12 272.4 429.2 Office Visit 05/11/2004 1:00p Main Office Jean-Claude Magaña M.D. 86726 753.12 429.2 272.4 401.1 Office Visit 02/24/2003 3:00p Main Office Monica Colin 47356 465.9 Plan of Care 07/29/2018 - Sania John, NPJ15.9 Unspecified bacterial pneumoniaNew Labs: CBC Electronic-ALL Lab CompaniComp MetabolicNew Xrays:Chest 2 ViewsComments:Get the chest x-ray done so we can confirm a qurtacesuA32.1 Chest pain on breathingComments:EKG show no acute changes.AllComments:1. Patient has been queried about patient's goals/preferences and functional/lifestyle goals at relevant visits. If relevant, describe: Has been discussed, noted above2. Treatment goals as explainedto the patient: see above3. Are there barriers to meeting treatment goals? Yes If Yes, please describe: Barriers include possible insurance limits, disease process, and difficulty with lifestyle changes4. Self-Management goals as described to the patient: Yes, see above As always, we strongly encourage a healthy diet and making physical activity a part of your every day life. If you have questions about how or where to start, please contact the office.
--- NOTE | 2018-07-30 20:33 | ED ---
HPI Chest Pain - HPI Summary HPI Summary: The pt is a 67 y/o male [facility] c/o right chest pain since 1 day ago. He had PNA for which he took Augmentin and Doxycycline at the end of June 2018, but stopped taking them after 1 week due to related diarrhea. He notes fevers and SOB but denies cough, and loss of appetite. The pain rated 9/ 10 in severity at its worst is aggravated by walking and coughing. He saw his PCP yesterday to no relief. - History of Current Complaint Chief Complaint: EDShortnessOfBreath Time Seen by Provider: 07/30/18 20:28 Hx Obtained From: Patient Onset/Duration: Started Days Ago - 1 day, Still Present Timing: Constant Initial Severity: Severe Current Severity: Severe Pain Intensity: 9 Pain Scale Used: 0-10 Numeric Chest Pain Location: Diffuse - R upper chest Character: Sharp/Stabbing Aggravating Factor(s): Movement, Other: - Ambulating Alleviating Factor(s): Nothing Associated Signs and Symptoms: Positive: Chest Pain, Fever. Negative: Cough - Allergy/Home Medications Allergies/Adverse Reactions: Allergies Allergy/AdvReac Type Severity Reaction Status Date / Time ciprofloxacin [From Cipro] Allergy Difficulty Verified 07/30/18 19:23 Breathing metronidazole Allergy Unknown Verified 07/30/18 21:51 Reaction Details niacin Allergy Flushing Verified 07/30/18 19:23 PMH/Surg Hx/FS Hx/Imm Hx Previously Healthy: No Endocrine/Hematology History: Denies: Hx Diabetes Cardiovascular History: Reports: Other Cardiovascular Problems/Disorders - Cardiac stent Respiratory History: Reports: Hx Pneumonia GI History: Reports: Other GI Disorders - Diverticulitis History: Reports: Other Problems/Disorders - Polycystic kidney disease - Cancer History Cancer Type, Location and Year: None reported - Surgical History Surgery Procedure, Year, and Place: UMBILICAL HERNIA SURGERY, CARDIAC STENT PLACEMENTS Infectious Disease History: No Infectious Disease History: Denies: Traveled Outside the [place] in Last 30 Days - Family History Known Family History: Negative: Cardiac Disease, Hypertension, Diabetes - Social History Occupation: Employed Full-time Lives: With Family Alcohol Use: None Substance Use Type: Reports: None Smoking Status (MU): Never Smoked Tobacco Review of Systems Positive: Fever Positive: Chest Pain Positive: Shortness Of Breath. Negative: Cough Gastrointestinal: Negative - Loss of appetite Positive: Diarrhea All Other Systems Reviewed And Are Negative: Yes Physical Exam - Summary Physical Exam Summary: Appearance: Well-appearing, Well-nourished, lying in bed comfortably Skin: Warm, dry, no obvious rash Eyes: sclera anicteric, no conjunctival pallor ENT: mucous membranes moist, pharynx appears normal Neck: Supple, nontender Respiratory: Bronchial breath sounds in the R lateral chest wall without the E to the A, Patient appears to be in deep pain when he tries taking a breath Cardiovascular: Normal S1, S2. No murmurs. Normal distal pulses in tibial and radial bilaterally. Abdomen: Soft, nontender, normal active bowel sounds present Musculoskeletal: Normal, Strength/ROM Intact Neurological: A&Ox3, awake and alert, mentation is normal, speech is fluent and appropriate Psychiatric: affect is normal, does not appear anxious or depressed Triage Information Reviewed: Yes Vital Signs On Initial Exam: Initial Vitals Temp Pulse Resp BP Pulse Ox 100.5 F 85 22 183/81 94 07/30/18 19:18 07/30/18 19:18 07/30/18 19:18 07/30/18 19:18 07/30/18 19:18 Vital Signs Reviewed: Yes Diagnostics - Vital Signs Vital Signs Temp Pulse Resp BP Pulse Ox 07/30/18 19:18 100.5 F 85 22 183/81 94 - Laboratory Result Diagrams: 08/01/18 06:33 08/01/18 06:33 Lab Statement: Any lab studies that have been ordered have been reviewed, and results considered in the medical decision making process. - EKG 21:04 Cardiac Rate: NL - 66 bpm Summary of EKG Findings: Concave up elevation in VII and VIII with repolarization abnormality, less likely infarction pattern. Chest Pain Course/Dx - Course Course Of Treatment: A 67 year-old M presents to the ED with a CC of right chest pain since 1 day ago. He had PNA for which he took Augmentin and Doxycycline at the end of June 2018, but stopped taking them after 1 week due to related diarrhea. He notes fever but denies cough, and loss of appetite. A physical exam revealed bronchial breath sounds in the R lateral chest wall without the E to the A. The patient appears to be in deep pain when he tries taking a breath. An EKG reveals concave up elevation in VII and VIII with repolarization abnormality, less likely infarction pattern. In the ED course, pt was given N.s 0.9% 3000 ml IV, and Morphine 10 mg IV which improved the symptoms. Patient will be signed ou tot Kailyn Ambriz MD at the end of the shift due to pending Chest CTA and lab results. Allergies noted. - Diagnoses Provider Diagnoses: Pulmonary embolism Discharge - Sign-Out/Discharge Documenting (check all that apply): Sign-Out Patient Signing out patient TO: Kailyn Schumacher - 22:00 hrs - Discharge Plan Condition: Fair Disposition: ADMITTED TO [facility] - Billing Disposition and Condition Condition: FAIR Disposition: Admitted to [facility] - Attestation Statements Document Initiated by Meggan: Yes Documenting Scribe: Charmaine Bellamy Provider For Whom Meggan is Documenting (Include Credential): Dr. Compa Canada MD Scribe Attestation: Charmaine Alonzo , scribed for Dr. Compa Canada MD on 08/01/18 at 2307. Scribe Documentation Reviewed: Yes Provider Attestation: The documentation as recorded by the Charmaine figueroa accurately reflects the service I personally performed and the decisions made by me, Dr. Compa Canada MD
[2018-07-30] MEDS ORDERED: NS 0.9% 1000 ML* 2,000 ML IV ONE (20:36)
[2018-07-30] MEDS ORDERED: Morphine VIAL* 4 MG/ML VIAL (1 ml vial) IV ONE (20:51)
[2018-07-30] MEDS ORDERED: NS 0.9% 1000 ML* 1,000 ML IV ONE (20:51)
[2018-07-30 21:08] LABS: ABS Basophils 0.1 10^3/ul (0-0.2); ABS Eosinophils 0.1 10^3/ul (0-0.6); ABS Lymphocytes 0.9 10^3/ul (1.0-4.8); ABS Neutrophils 10.7 10^3/ul (1.5-7.7); ABS Nucleated RBC 0 10^3/ul; Eosinophil % 0.9 % (0-6); Hematocrit 48 % (42-52); Hemoglobin 16.4 g/dl (14.0-18.0); Mean Corpuscular HGB Conc 34 g/dl (31-36); Mean Corpuscular Hemoglobin 31 pg (27-31); Mean Corpuscular Volume 90 fL (80-94); Mean Platelet Volume 7.3 fL (7.4-10.4); Nucleated Red Blood Cells % 0; Platelet Count 182 10^3/ul (150-450); Red Blood Count 5.36 10^6/ul (4.00-5.40); Red Cell Distribution Width 14 % (10.5-15); White Blood Count 12.8 10^3/ul (3.5-10.8)
[2018-07-30 21:30] LABS: EGFR Non-African American 32.3 (>60)
[2018-07-30] MEDS ORDERED: cefTRIAXone(*) 1 GM in NS 0.9% 50 ML* 50 ML IVPB ONE (21:42)
[2018-07-30] MEDS ORDERED: Azithromycin IV(*) 500 MG in NS 0.9% 250 ML* 250 ML IVPB ONE (21:42)
[2018-07-30] MEDS ORDERED: Iodixanol* (CONTRAST) 320 MG/ML 100 ML SDV IV ONE (21:47)
--- NOTE | 2018-07-30 22:28 | ED ---
Progress - Progress Note Progress Note: Patient is received as a sign out from Dr. Canada to Dr. Schumacher at 2200 07/30/18 pending CTA chest. CTA CHEST IMPRESSION: 1. Moderate volume pulmonary emboli burden with findings of right heart strain and multiple pulmonary infarcts. 2. Polycystic hepatorenal disease. This report was reviewed by ED physician. Results of CTA was discussed with patient, he is agreeable with admission. Patient's case was discussed with Dr. Merchant at 0394, Dr. Merchant accepts for admission. - EKG/XRAY/CT CT: see above Re-Evaluation - Re-Evaluation First Eval Re-Evaluation Time: 23:51 Comment: results of CTA was discussed with patient, he is agreeable with admission. Course/Dx - Course Course Of Treatment: Patient is received as a sign out from Dr. Canada to Dr. Schumacher at 2200 07/30/18 pending CTA chest. CTA CHEST IMPRESSION: 1. Moderate volume pulmonary emboli burden with findings of right heart strain. and multiple pulmonary infarcts. 2. Polycystic hepatorenal disease. This report was reviewed by ED physician. Results of CTA was discussed with patient, he is agreeable with admission. Patient's case was discussed with Dr. Merchant at [id number], Dr. Merchant accepts for admission. Dx of pulmonary embolism. - Diagnoses Provider Diagnoses: Pulmonary embolism - Provider Notifications Discussed Care Of Patient With: Klaudia Nunes Time Discussed With Above Provider: 23:36 Instructed by Provider To: Other - Dr. Nunes communicated the results of CTA chest via phone at [phone] - Dr. Merchant was consulted on patient's case, Dr. Merchant accepts patient for admission. Discharge - Sign-Out/Discharge Documenting (check all that apply): Patient Departure - admit - Discharge Plan Condition: Fair Disposition: ADMITTED TO [facility] - Attestation Statements Document Initiated by Scribe: Yes Documenting Scribe: ANDREAS TOMAS Provider For Whom Meggan is Documenting (Include Credential): GIO SCHUMACHER MD Scribe Attestation: ANDREAS Alonzo , scribed for GIO SCHUMACHER MD on 07/31/18 at 0128.
[2018-07-30] MEDS ORDERED: Heparin DRIP 25,000 UNITS(*) 25,000 UNITS/500 ML BAG IV SCH (23:45)
[2018-07-31] MEDS ORDERED: Heparin VIAL(*) 5000 UNITS/ML VIAL (FIVE THOUSAND) IV ONE
[2018-07-31] MEDS ORDERED: Heparin DRIP 25,000 UNITS(*) 25,000 UNITS/500 ML BAG ONE (00:02)
[2018-07-31] MEDS ORDERED: Ondansetron INJ* 2 MG/ML VIAL IV PRN (00:35)
[2018-07-31] MEDS ORDERED: Acetaminophen TAB* 325 MG PO PRN (00:35)
[2018-07-31] MEDS ORDERED: Al Hydrox/Mg Hydrox/Simet LIQ* 30 ML UDC PO PRN (00:35)
[2018-07-31] MEDS ORDERED: Docusate CAP* 100 MG PO PRN (00:35)
[2018-07-31 00:36] LABS: INR 0.95 (0.77-1.02)
[2018-07-31] MEDS ORDERED: NS 0.9% 1000 ML* 1,000 ML IV SCH (00:45)
[2018-07-31] MEDS: Morphine VIAL* 4 MG/ML VIAL (1 ml vial) IV PRN ×4 (02:05→21:21)
[2018-07-31] MEDS ORDERED: Heparin VIAL(*) 5000 UNITS/ML VIAL (FIVE THOUSAND) IV PRN (02:37)
[2018-07-31] MEDS: Heparin DRIP 25,000 UNITS(*) 25,000 UNITS/500 ML BAG IV SCH (02:50)
--- NOTE | 2018-07-31 06:11 | HP ---
HISTORY AND PHYSICAL: DATE OF ADMISSION: 07/31/18 TIME OF EVALUATION: 0000. PRIMARY CARE PROVIDER: Jean-Claude Magaña MD. SOCIAL WORK THERAPIST: Dr. Salomon. CHIEF COMPLAINT: Pleuritic chest pain. HISTORY OF PRESENT ILLNESS: This is a 67-year-old male with past medical history of coronary artery disease and polycystic kidney disease who presents to the emergency room with worsening pleuritic chest pain. The patient states around mid June, he developed right-sided chest pain that would get better and then he developed left-sided chest pain and difficulty, pain with taking deep breath. On 07/15/18, he went to [facility] emergency room, at that time they diagnosed him with pneumonia. They stated blood clot is less likely and did not do a CAT scan because of his kidney disease. They sent him home with Augmentin and doxycycline. He took the antibiotics for a week, started to have some GI upset and stopped them after a week. He states he felt better. Chest pain and pleuritic pain improved. Then on Saturday, the , he woke up with right-sided pain. He went to see Dr. Magaña. He was sent for an x-ray at that time that showed right midline consolidation with linear atelectasis of the left lung base, recommended followup. He was started on cefuroxime and took 3 doses but the pain continued with worsening right-sided pleuritic pain, shortness of breath, nausea, minimal coughing. He denied any lower extremity swelling or asymmetry. No changes in his weight. No fevers or chills. No abdominal pain. No urinary symptoms. The remaining review of systems is negative. In the emergency room, the patient had labs and imaging. He had a CTA that showed bilateral pulmonary emboli with right heart strain. He was started on a heparin drip and referred to the hospitalist service for further evaluation. Prior to the results of the CTA, he did get azithromycin and ceftriaxone and 2 L of fluid and 10 mg of morphine. PAST MEDICAL HISTORY: 1. Recent diagnosis of pneumonia in June 2018, completed Augmentin and doxycycline. 2. Coronary artery disease, status post stent in 2009. 3. Polycystic kidney disease. 4. History of diverticulitis. 5. History of hypertension. MEDICATIONS: 1. Lisinopril 10 mg p.o. daily. 2. Nitro sublingual as needed for chest pain. 3. Crestor 5 mg p.o. daily. 4. Folic acid 1 mg daily. 5. Aspirin 81 mg p.o. daily. 6. Metoprolol tartrate 25 mg p.o. b.i.d. ALLERGIES: CIPROFLOXACIN, METRONIDAZOLE, NIACIN. FAMILY HISTORY: Mother from rheumatoid arthritis and COPD. Father at age 86. No history of blood clots. SOCIAL HISTORY: The patient lives at home with his who is his healthcare proxy. Runs a [employer]. He smokes off and on throughout the year, mainly during his fishing season will smoke about a pack over 2 to 3 days. Rare alcohol use. No illicit drug use. Code status: Full code. PHYSICAL EXAMINATION GENERAL: Some mild discomfort, with his at the bedside. VITAL SIGNS: T-max 100.5, pulse rate 75, respiratory rate in the 30s, oxygen saturation 94% on 3 L, blood pressure 143/79. HEENT: Head normocephalic. Pupils equal and reactive. Oropharynx: Mucous membranes are moist. NECK: Supple. No lymphadenopathy. No nuchal rigidity. RESPIRATORY: Diminished breath sounds, poor aeration, rhonchi bilaterally. CARDIAC: Regular rate and rhythm. Soft systolic murmur heard throughout. ABDOMEN: Soft, nontender, nondistended. EXTREMITIES: No clubbing, cyanosis or edema. 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 NEUROLOGICAL: Alert and oriented x3. No gross focal neurologic deficits. LABORATORY DATA: White count 12.8, hemoglobin 16.4, hematocrit 48, platelets 182,000. INR 0.95, D-dimer is greater than 1050. Sodium 140, potassium 4.7, chloride 108, bicarb 23, BUN 41, creatinine 2.06, glucose 117, lactic acid 0.6. Troponin 0.06. RADIOGRAPHIC DATA: EKG: Sinus rhythm at [address] changes and some ST elevation in V2 and V3 but with more of a concave up elevation. CTA of the chest showed moderate volume pulmonary emboli burden with findings of right heart strain and multiple pulmonary infarcts, polycystic hepatorenal disease. ASSESSMENT: This is a 67-year-old male with past medical history of coronary artery disease, tobacco use who presented to the emergency room with worsening pleuritic pain, found to have bilateral pulmonary emboli. Pulmonary emboli with pulmonary infarcts. Assessment: The patient is tachypneic but he is not hemodynamically unstable. He does have evidence of right heart strain. No indication to give tPA at this time. He has been started on a heparin drip. Plan: We will admit him to the ICU for close observation. Continue the heparin drip. We will order an echocardiogram and Doppler of his lower extremities, pain control and bowel regimen and will sign out to Dr. Dobbins to take over service in the morning. We will also trend his troponins. Chronic medical problems: 1. Coronary artery disease: Continue his aspirin and metoprolol. 2. History of polycystic kidney disease: We will monitor his renal function closely, especially in the setting of recent CTA. We will hold his lisinopril for now. Continue his Crestor and folic acid. 3. FEN: We will continue him on fluids and regular diet. 4. DVT prophylaxis: The patient scores moderate risk, he will be on heparin drip. 5. Code status: Full code. TIME SPENT: Greater than 60 minutes spent doing history and physical, more than half time spent in direct patient contact and critical care time. [id number]/CPS #: [id number] MAYKEL
[2018-07-31 06:37] LABS: ABS Basophils 0.1 10^3/ul (0-0.2); ABS Eosinophils 0.4 10^3/ul (0-0.6); ABS Lymphocytes 1.3 10^3/ul (1.0-4.8); ABS Monocytes 0.9 10^3/ul (0-0.8); ABS Neutrophils 6.6 10^3/ul (1.5-7.7); ABS Nucleated RBC 0 10^3/ul; Hematocrit 41 % (42-52); Hemoglobin 14.1 g/dl (14.0-18.0); Lymphocyte % 14.6 % (25-47); Mean Corpuscular HGB Conc 35 g/dl (31-36); Mean Corpuscular Hemoglobin 31 pg (27-31); Mean Corpuscular Volume 90 fL (80-94); Mean Platelet Volume 7.6 fL (7.4-10.4); Nucleated Red Blood Cells % 0.1; Platelet Count 137 10^3/ul (150-450); Red Blood Count 4.51 10^6/ul (4.00-5.40); Red Cell Distribution Width 13 % (10.5-15); White Blood Count 9.2 10^3/ul (3.5-10.8)
[2018-07-31 07:09] LABS: EGFR Non-African American 36.1 (>60)
[2018-07-31] MEDS: Aspirin 81 mg CHEW TAB* 81 MG TAB.CHEW PO SCH (09:17)
[2018-07-31] MEDS: Folic Acid TAB* 1 MG PO SCH (09:18)
[2018-07-31] MEDS: Metoprolol Tartrate TAB* 25 MG PO SCH ×2 (09:18→19:51)
--- NOTE | 2018-07-31 10:00 | PN ---
Date of Service: 07/31/18 Critical Care Services: 67M with htn, hld, cad, pckd presents with submassive PE with pulmonary infarct. 07/31: Hemodynamically stable. On heparin gtt. Vital Signs: Temp Pulse Resp BP SpO2 FiO2 98.6 F 68 24 174/85 95 07/31/18 04:00 07/31/18 09:01 07/31/18 09:41 07/31/18 09:00 07/31/18 09:01 Physical Exam: Gen - NAD Heent - ncat, eomi, perrl neck - no jvd, no thyromegaly cv - s1/s2, no murmur lungs - cta, no wheeze abd - soft, nt, nd ext - no cce neuro - non-focal Fluid Balance (Past 24 Hours): I= O= Net Intake & Output 07/29/18 07/30/18 07/31/18 08/01/18 06:59 06:59 06:59 06:59 Intake Total 2986 147 Output Total 450 250 Balance 2536 -103 Weight 83 kg Intake: IV Fluids 2746 NS (0.9%) 420 Heparin 147 Oral 240 Output: Urine 450 250 Labs: Laboratory Results - last 24 hr 07/30/18 07/30/18 07/30/18 20:59 20:59 20:59 WBC 12.8 H RBC 5.36 Hgb 16.4 Hct 48 MCV 90 MCH 31 MCHC 34 RDW 14 Plt Count 182 MPV 7.3 L Neut % (Auto) 83.8 H Lymph % (Auto) 7.0 L [place] % (Auto) 7.7 H Eos % (Auto) 0.9 Baso % (Auto) 0.6 Absolute Neuts (auto) 10.7 H Absolute Lymphs (auto) 0.9 L Absolute Monos (auto) 1.0 H Absolute Eos (auto) 0.1 Absolute Basos (auto) 0.1 Absolute Nucleated RBC 0 Nucleated RBC % 0 INR (Anticoag Therapy) APTT D-Dimer, Quantitative Sodium 140 Potassium 4.7 Chloride 108 Carbon Dioxide 23 Anion Gap 9 BUN 41 H Creatinine 2.06 H Est GFR ( Amer) 39.1 Est GFR (Non-Af Amer) 32.3 BUN/Creatinine Ratio 19.9 Glucose 117 H Lactic Acid 0.6 Calcium 9.6 Total Bilirubin 0.60 AST 16 ALT 21 Alkaline Phosphatase 70 Troponin I 0.06 H* Total Protein 7.4 Albumin 4.1 Globulin 3.3 Albumin/Globulin Ratio 1.2 07/30/18 07/31/18 07/31/18 20:59 01:17 06:20 WBC RBC Hgb Hct MCV MCH MCHC RDW Plt Count MPV Neut % (Auto) Lymph % (Auto) [place] % (Auto) Eos % (Auto) Baso % (Auto) Absolute Neuts (auto) Absolute Lymphs (auto) Absolute Monos (auto) Absolute Eos (auto) Absolute Basos (auto) Absolute Nucleated RBC Nucleated RBC % INR (Anticoag Therapy) 0.95 APTT 31.6 114.9 H* D-Dimer, Quantitative > 1050 H Sodium Potassium Chloride Carbon Dioxide Anion Gap BUN Creatinine Est GFR ( Amer) Est GFR (Non-Af Amer) BUN/Creatinine Ratio Glucose Lactic Acid Calcium Total Bilirubin AST ALT Alkaline Phosphatase Troponin I 0.07 H* Total Protein Albumin Globulin Albumin/Globulin Ratio 07/31/18 07/31/18 06:20 06:20 WBC 9.2 RBC 4.51 Hgb 14.1 Hct 41 L MCV 90 MCH 31 MCHC 35 RDW 13 Plt Count 137 L MPV 7.6 Neut % (Auto) 71.0 Lymph % (Auto) 14.6 L [place] % (Auto) 9.7 H Eos % (Auto) 4.0 Baso % (Auto) 0.7 Absolute Neuts (auto) 6.6 Absolute Lymphs (auto) 1.3 Absolute Monos (auto) 0.9 H Absolute Eos (auto) 0.4 Absolute Basos (auto) 0.1 Absolute Nucleated RBC 0 Nucleated RBC % 0.1 INR (Anticoag Therapy) APTT D-Dimer, Quantitative Sodium 139 Potassium 4.4 Chloride 112 H Carbon Dioxide 21 L Anion Gap 6 BUN 37 H Creatinine 1.87 H Est GFR ( Amer) 43.7 Est GFR (Non-Af Amer) 36.1 BUN/Creatinine Ratio 19.8 Glucose 109 H Lactic Acid Calcium 8.1 L Total Bilirubin AST ALT Alkaline Phosphatase Troponin I Total Protein Albumin Globulin Albumin/Globulin Ratio Studies: CTA Chest 07/30 IMPRESSION: 1. Moderate volume pulmonary emboli burden with findings of right heart strain and multiple pulmonary infarcts. 2. Polycystic hepatorenal disease. LE doppler 07/31 IMPRESSION: 1. NO EVIDENCE FOR DEEP VENOUS THROMBOSIS. 2. BILATERAL VENOUS STASIS. Impression: 67M with htn, hld, cad, pckd presents with submassive PE with pulmonary infarct. Plan: Neuro - pain control CV - htn, hld, cad - c/w asa/statin/bblocker - bp ok - tte pending to eval for right hear strain Pulm - hypoxia - 2/2 PE and pulmonary infarct - wean o2 as tolerated ID - wbc normal - afebrile GI - diet as tolerated Renal - pckd - s/p iv contrast - monitor for worsening renal function - iv hydration - monitor i/o - monitor lytes Heme - Submassive PE - unprovoked - heparin gtt - bridge to coumadin - monitor for bleeding endo - check fs, niss lines - piv ppx - gi/dvt Full Code Critical Care Time: 55 mins
--- NOTE | 2018-07-31 10:14 | ECHO ---
Patient: BROOKLYNN CHRISTENSEN Rec#: [id number] : 1950 Date: 07/31/2018 Age: 67y Height: 170 cm / 66.9 in Weight: 82.6 kg / 182.1 lbs Sex: M BSA: 1.9 Room#: ICU 9 Admit Date#: 07/31/2018 Type: Inpatient Referring: Poly Merchant Reading: Chuy Crouch DO Contracts Director: Alethea Handley RN RDCS CC: Jean-Claude Magaña MD Transthoracic Echocardiogram Indication: Pulmonary embolism BP: 128/72 HR: 70 Rhythm: NSR Findings History: No prior [facility] echo Technical Comments: The study quality is fair. The study is technically limited due to the patient's smoking history. Completed at 0905. Left Ventricle: The left ventricular chamber size is normal. Mild concentric left ventricular hypertrophy is observed. There is a prominent septal knuckle. Global left ventricular wall motion and contractility are within normal limits. There is normal left ventricular systolic function. The estimated ejection fraction is greater than 65%. There is no consistent Doppler evidence of clinically significant diastolic dysfunction. Left Atrium: The left atrium is mildly dilated. Right Ventricle: The right ventricular chamber size and systolic function are within normal limits. Right Atrium: The right atrium is mildly dilated. Aortic Valve: The aortic valve is trileaflet. The aortic valve leaflets are mildly thickened. There is no evidence of aortic regurgitation. There is no evidence of aortic stenosis. Mitral Valve: The mitral valve leaflets are mildly thickened. There is a trace of mitral regurgitation. There is no evidence of mitral stenosis. Tricuspid Valve: The tricuspid valve leaflets are normal. There is trace tricuspid regurgitation. Unable to estimate the right ventricular systolic pressure. There is no tricuspid stenosis. Pulmonic Valve: The pulmonic valve appears normal. There is a trace pulmonic regurgitation. There is no pulmonic stenosis. Pericardium: There is no significant pericardial effusion. Aorta: There is no dilatation of the ascending aorta. There is no dilatation of the aortic arch. There is no dilation of the aortic root. Pulmonary Artery: The main pulmonary artery is not well visualized. Venous: The venous system is not well visualized. The inferior vena cava is not visualized. Conclusions The left ventricular chamber size is normal. Mild concentric left ventricular hypertrophy is observed. Global left ventricular wall motion and contractility are within normal limits. There is normal left ventricular systolic function. The estimated ejection fraction is 65-70%. The left atrium is mildly dilated. The right ventricular chamber size and systolic function are within normal limits. There is trace tricuspid regurgitation. Unable to estimate the right ventricular systolic pressure. None prior for comparison at time of interpretation Measurements Name Value Normal Range RVIDd (AP) 2D 3 cm (0.9 - 2.6) RVDdMajor (2D) 3.1 cm (2.2 - 4.4) RAd ISD 4CH 5.3 cm (3.4 - 4.9) RA (A4C)W 4.1 cm (2.9 - 4.6) IVSd (2D) 1.3 cm (0.6 - 1) LVPWd (2D) 1.3 cm (0.6 - 1) LVIDd (2D) 3.8 cm (3.6 - 5.4) LVIDs (2D) 2.4 cm - LV FS (2D) 37 % (25 - 45) Aortic Annulus 2.3 cm (1.4 - 2.6) Ao root diameter (2D) 3.1 cm (2.1 - 3.5) Ascending Ao 3.5 cm (2.1 - 3.4) Aortic arch 3.2 cm (1.8 - 3.4) LA dimension (AP) 2D 4.1 cm (2.3 - 3.8) LAd ISD 4CH 5.5 cm (2.9 - 5.3) LA ISD 4CH W 4.1 cm (2.5 - 4.5) Name Value Normal Range LA ESV BP (A/L) index 22.4 ml/m2 - Name Value Normal Range MV E-wave Vmax 0.67 m/sec - MV deceleration time 289 msec - MV A-wave Vmax 0.89 m/sec - MV E:A ratio 0.8 ratio - LV septal e' Vmax 0.06 m/sec - LV lateral e' Vmax 0.09 m/sec - LV E:e' septal ratio 11.2 ratio - LV E:e' lateral ratio 7.4 ratio - Name Value Normal Range AV Vmax 1.5 m/sec - AV VTI 36 cm - AV peak gradient 9 mmHg - AV mean gradient 6 mmHg - LVOT Vmax 1.2 m/sec - LVOT VTI 29.4 cm - LVOT peak gradient 6 mmHg - LVOT mean gradient 4 mmHg - JOSEF Vmax 0.59 m/sec - Name Value Normal Range PV Vmax 0.79 m/sec -
[2018-07-31] MEDS ORDERED: Morphine VIAL* 4 MG/ML VIAL (1 ml vial) IV ONE (15:28)
[2018-07-31] MEDS: Atorvastatin* 10 MG TAB PO SCH (16:57)
[2018-07-31] MEDS ORDERED: Warfarin TAB(*) 5 MG PO ONE (17:00)
[2018-07-31] MEDS: Senna TAB PO PRN (21:25)
[2018-08-01] MEDS ORDERED: Metoprolol Tartrate IV* 1 MG/ML 5 ML VIAL IV PRN (04:15)
--- NOTE | 2018-08-01 04:31 | PN ---
Progress Note - Progress Note Date of Service: 08/01/18 Note: Patient went into rapid atrial fib. Asymptomatic. On anticoagulation. Will give a dose of IV lopressor. Will make NPO for possible cardioversion.
[2018-08-01] MEDS: Morphine VIAL* 4 MG/ML VIAL (1 ml vial) IV PRN (04:47)
[2018-08-01] MEDS ORDERED: Diltiazem IV* 5 MG/ML 5 ML VIAL (for loading dose/IV Push) (25 MG) IV SLOW PU ONE (05:20)
[2018-08-01] MEDS ORDERED: Diltiazem IV VIAL* 125 MG in NS 0.9% 100 ML* 100 ML IV SCH (06:00)
[2018-08-01] MEDS ORDERED: Diltiazem DRIP* 100 MG in NS 100 ML ADDV.BAG IVPB SCH (06:00)
[2018-08-01 06:51] LABS: ABS Basophils 0.1 10^3/ul (0-0.2); ABS Eosinophils 0.3 10^3/ul (0-0.6); ABS Monocytes 0.9 10^3/ul (0-0.8); ABS Neutrophils 9.1 10^3/ul (1.5-7.7); ABS Nucleated RBC 0 10^3/ul; Eosinophil % 2.9 % (0-6); Hematocrit 43 % (42-52); Hemoglobin 14.5 g/dl (14.0-18.0); Mean Corpuscular HGB Conc 34 g/dl (31-36); Mean Corpuscular Hemoglobin 31 pg (27-31); Mean Corpuscular Volume 90 fL (80-94); Mean Platelet Volume 7.8 fL (7.4-10.4); Nucleated Red Blood Cells % 0; Platelet Count 151 10^3/ul (150-450); Red Blood Count 4.75 10^6/ul (4.00-5.40); Red Cell Distribution Width 13 % (10.5-15); White Blood Count 11.4 10^3/ul (3.5-10.8)
[2018-08-01 06:52] LABS: INR 1.04 (0.77-1.02)
[2018-08-01 06:58] LABS: EGFR Non-African American 39.7 (>60)
[2018-08-01] MEDS ORDERED: Magnesium Sulfate 2 GM IV* 2 GM/50 ML BAG IVPB ONE (07:42)
[2018-08-01] MEDS: Folic Acid TAB* 1 MG PO SCH (08:23)
[2018-08-01] MEDS: Metoprolol Tartrate TAB* 25 MG PO SCH ×2 (08:23→20:58)
[2018-08-01] MEDS: Aspirin 81 mg CHEW TAB* 81 MG TAB.CHEW PO SCH (08:23)
--- NOTE | 2018-08-01 16:05 | PN ---
Subjective Date of Service: 08/01/18 Interval History: HOSPITALIST PROGRESS NOTE Patient seen and examined at bedside. Care reviewed and d/w Mary Jo Vicente RN. He feels better today. Right sided chest pain is improved, breathing is easier. He denies family h/o blood clots, only recent trip was to [place] 2:30h by car each way, no recent falls/trauma. He is a smoker. Family History: Unchanged from Admission Social History: Unchanged from Admission Past Medical History: Unchanged from Admission Objective Active Medications: Acetaminophen (Tylenol Tab*) 650 mg PO Q4H PRN PRN Reason: FEVER/PAIN Last Admin: 07/31/18 16:57 Dose: 650 mg Al Hydrox/Mg Hydrox/Simethicone (Maalox Plus*) 30 ml PO Q6H PRN PRN Reason: INDIGESTION Aspirin (Aspirin 81 Mg Chew Tab*) 81 mg PO DAILY [facility] Last Admin: 08/01/18 08:23 Dose: 81 mg Atorvastatin Calcium (Lipitor*) 10 mg PO DAILY@1700 [facility] Last Admin: 07/31/18 16:57 Dose: 10 mg Docusate Sodium (Colace Cap*) 100 mg PO BID PRN PRN Reason: CONSTIPATION Folic Acid (Folvite Tab*) 1 mg PO DAILY [facility] Last Admin: 08/01/18 08:23 Dose: 1 mg Heparin Sodium (Porcine) (Heparin Vial(*)) 0 units IV .BOLUS PRN PRN Reason: HEPARIN DRIP PROTOCOL Heparin Sodium/Dextrose (Heparin Drip 25,000 Units(*)) 25,000 units in 500 mls @ 0 mls/hr IV PER RATE [facility]; Protocol Last Admin: 07/31/18 02:50 Dose: 30 mls/hr Metoprolol Tartrate (Lopressor Tab*) 25 mg PO BID [facility] Last Admin: 08/01/18 08:23 Dose: 25 mg Morphine Sulfate (Morphine Vial*) 2 mg IV Q2H PRN PRN Reason: PAIN - MILD Last Admin: 08/01/18 04:47 Dose: 2 mg Ondansetron HCl (Zofran Inj*) 4 mg IV Q4H PRN PRN Reason: NAUSEA/VOMITING Pharmacy Profile Note (Coumadin Per Pharmacy*) 1 note FOLLOW UP .PER PHARMACY PROTOC [facility]; Protocol Senna (Senokot Tab*) 1 tab PO BID PRN PRN Reason: CONSTIPATION Last Admin: 07/31/18 21:25 Dose: 1 tab Warfarin Sodium (Coumadin Tab(*)) 5 mg PO 1700 ONE Stop: 08/01/18 17:01 Vital Signs - 8 hr 08/01/18 08/01/18 08/01/18 08:01 08:07 08:11 Temperature Pulse Rate Respiratory Rate Blood Pressure 112/58 118/54 122/50 (mmHg) O2 Sat by Pulse Oximetry 08/01/18 08/01/18 08/01/18 08:18 08:40 11:52 Temperature 98.4 F 99.3 F Pulse Rate 70 61 Respiratory 18 18 Rate Blood Pressure 116/57 135/50 113/52 (mmHg) O2 Sat by Pulse 95 94 Oximetry Oxygen Devices in Use Now: Nasal Cannula Appearance: Pleasant gentleman lying in bed in NAD. Eyes: No Scleral Icterus Ears/Nose/Mouth/Throat: Mucous Membranes Moist Neck: Trachea Midline Extremities: No Edema Neurological: Alert and Oriented x 3, NL Muscle Strength and Tone Result Diagrams: 08/01/18 06:33 08/01/18 06:33 Assess/Plan/Problems-Billing Assessment: Mr Rogers is a 67yo M with PMH of CAD, polycystic kidney disease with CKD stage 3, HTN, diverticulitis, recently treated for pneumonia, who presented to ED with c/o worsening right sided pleuritic chest pain and dyspnea, found to have PE. - Patient Problems (1) Acute hypoxemic respiratory failure Comment: - Secondary to pulmonary embolism. - Continue supplemental O2. (2) Pulmonary embolism Comment: - Patient was recently treated for pneumonia, but states dyspnea and pleuritic pain worsened despite antibiotics. - CTA chest showed moderate volume pulmonary emboli burden with findings of right heart strain and multiple pulmonary infarcts. - LE doppler was negative for DVT. - Echo showed normal EF, normal RV function, unable to measure pulmonary pressure. - Will continue heparin drip and warfarin for now. - No clear provoking factors - will request Hematology consultation re: if patient candidate for NOAC (Apixaban), duration of treatment, and if hypercoagulable w/u indicated. (3) Atrial fibrillation Comment: - Patient had an episode of Afib overnight, resolved after Cardizem bolus. - Continue to monitor on Telemetry. (4) CKD (chronic kidney disease) stage 3, GFR 30-59 ml/min Comment: - Secondary to polycystic kidney disease. - Renal function stable. (5) HTN (hypertension) Comment: - Controlled. - Continue Metoprolol. (6) DVT prophylaxis Comment: - Heparin drip. (7) Full code status Status and Disposition: Inpatient for management of respiratory failure and PE.
[2018-08-01] MEDS ORDERED: Warfarin TAB(*) 5 MG PO ONE (17:00)
[2018-08-01] MEDS: Atorvastatin* 10 MG TAB PO SCH (18:04)
[2018-08-01] MEDS: Senna TAB PO PRN (21:06)
[2018-08-01] MEDS: Heparin DRIP 25,000 UNITS(*) 25,000 UNITS/500 ML BAG IV SCH (23:31)
[2018-08-02 05:41] LABS: ABS Basophils 0 10^3/ul (0-0.2); ABS Eosinophils 0.5 10^3/ul (0-0.6); ABS Lymphocytes 1.6 10^3/ul (1.0-4.8); ABS Monocytes 0.7 10^3/ul (0-0.8); ABS Neutrophils 5.5 10^3/ul (1.5-7.7); ABS Nucleated RBC 0 10^3/ul; Hematocrit 39 % (42-52); Hemoglobin 13.6 g/dl (14.0-18.0); Lymphocyte % 19.7 % (25-47); Mean Corpuscular HGB Conc 35 g/dl (31-36); Mean Corpuscular Hemoglobin 31 pg (27-31); Mean Corpuscular Volume 89 fL (80-94); Mean Platelet Volume 7.5 fL (7.4-10.4); Nucleated Red Blood Cells % 0; Platelet Count 169 10^3/ul (150-450); Red Blood Count 4.34 10^6/ul (4.00-5.40); Red Cell Distribution Width 13 % (10.5-15); White Blood Count 8.3 10^3/ul (3.5-10.8)
[2018-08-02 06:02] LABS: EGFR Non-African American 35.6 (>60)
[2018-08-02 06:04] LABS: INR 1.11 (0.77-1.02)
[2018-08-02] MEDS: Metoprolol Tartrate TAB* 25 MG PO SCH ×2 (08:54→20:11)
[2018-08-02] MEDS: Aspirin 81 mg CHEW TAB* 81 MG TAB.CHEW PO SCH (08:54)
[2018-08-02] MEDS: Folic Acid TAB* 1 MG PO SCH (08:54)
[2018-08-02] MEDS: Enoxaparin(*) 150 MG/ML 1 ML SYRINGE SUBCUT SCH (12:41)
[2018-08-02] MEDS: Atorvastatin* 10 MG TAB PO SCH (16:11)
--- NOTE | 2018-08-02 17:53 | PN ---
Subjective Date of Service: 08/02/18 Interval History: Discussed in detail about kidney transplant w/u,PE and his family history.Currently reports sig improvement in sob,pleuritic cp.has been walking and reports no distress Family History: Unchanged from Admission Social History: Unchanged from Admission Past Medical History: Unchanged from Admission Objective Active Medications: Acetaminophen (Tylenol Tab*) 650 mg PO Q4H PRN PRN Reason: FEVER/PAIN Last Admin: 07/31/18 16:57 Dose: 650 mg Al Hydrox/Mg Hydrox/Simethicone (Maalox Plus*) 30 ml PO Q6H PRN PRN Reason: INDIGESTION Aspirin (Aspirin 81 Mg Chew Tab*) 81 mg PO DAILY [facility] Last Admin: 08/02/18 08:54 Dose: 81 mg Atorvastatin Calcium (Lipitor*) 10 mg PO DAILY@1700 [facility] Last Admin: 08/02/18 16:11 Dose: 10 mg Docusate Sodium (Colace Cap*) 100 mg PO BID PRN PRN Reason: CONSTIPATION Last Admin: 08/01/18 21:06 Dose: 100 mg Enoxaparin Sodium (Lovenox(*)) 120 mg SUBCUT Q24H [facility] Last Admin: 08/02/18 12:41 Dose: 120 mg Folic Acid (Folvite Tab*) 1 mg PO DAILY [facility] Last Admin: 08/02/18 08:54 Dose: 1 mg Metoprolol Tartrate (Lopressor Tab*) 25 mg PO BID [facility] Last Admin: 08/02/18 08:54 Dose: 25 mg Morphine Sulfate (Morphine Vial*) 2 mg IV Q2H PRN PRN Reason: PAIN - MILD Last Admin: 08/01/18 04:47 Dose: 2 mg Ondansetron HCl (Zofran Inj*) 4 mg IV Q4H PRN PRN Reason: NAUSEA/VOMITING Senna (Senokot Tab*) 1 tab PO BID PRN PRN Reason: CONSTIPATION Last Admin: 08/01/18 21:06 Dose: 1 tab Vital Signs - 8 hr 08/02/18 08/02/18 11:29 15:09 Temperature 98.2 F 98.2 F Pulse Rate 57 63 Respiratory 18 16 Rate Blood Pressure 150/76 120/60 (mmHg) O2 Sat by Pulse 96 96 Oximetry Oxygen Devices in Use Now: Nasal Cannula Eyes: No Scleral Icterus Ears/Nose/Mouth/Throat: NL Teeth, Lips, Gums Neck: NL Appearance and Movements; NL JVP Respiratory: Symmetrical Chest Expansion and Respiratory Effort, Clear to Auscultation Cardiovascular: NL Sounds; No Murmurs; No JVD, RRR Abdominal: NL Sounds; No Tenderness; No Distention, - - Enlarged palpable kidneys bilaterally Extremities: No Edema Skin: No Rash or Ulcers Neurological: Alert and Oriented x 3 Result Diagrams: 08/02/18 05:28 08/02/18 05:28 Microbiology and Other Data: Microbiology 07/30/18 20:58 Aerobic Blood Culture - Preliminary Blood Venous No Growth Day 2 Anaerobic Blood Culture - Preliminary No Growth Day 2 07/30/18 21:01 Aerobic Blood Culture - Preliminary Blood Venous No Growth Day 2 Anaerobic Blood Culture - Preliminary No Growth Day 2 07/31/18 01:50 Nasal Screen MRSA (PCR) - Final Nasal Mrsa Not Detected Assess/Plan/Problems-Billing Assessment: Mr Rogers is a 67yo M with PMH of CAD, polycystic kidney disease with CKD stage 3, HTN, diverticulitis, recently treated for pneumonia, who presented to ED with c/o worsening right sided pleuritic chest pain and dyspnea, found to have PE. - Patient Problems (1) Pulmonary embolism Current Visit: Yes Status: Acute Code(s): I26.99 - OTHER PULMONARY EMBOLISM WITHOUT ACUTE COR PULMONALE SNOMED Code(s): 08799207 Comment: - Patient was recently treated for pneumonia, but states dyspnea and pleuritic pain worsened despite antibiotics. - CTA chest showed moderate volume pulmonary emboli burden with findings of right heart strain and multiple pulmonary infarcts. - LE doppler was negative for DVT. - Echo showed normal EF, normal RV function, unable to measure pulmonary pressure. -Appreciate Dr Clayton's input -Transitioned to Lovenox and plan to be on Eliquis as an OP from 08/07 evening -Poss hypercoag w/u later as an OP -F/u Dr Clayton on the at 5 pm -May need prior auth for Eliquis.Will d/w case management (2) Acute hypoxemic respiratory failure Current Visit: Yes Status: Acute Code(s): J96.01 - ACUTE RESPIRATORY FAILURE WITH HYPOXIA SNOMED Code(s): 125022551 Comment: - Secondary to pulmonary embolism. - Continue supplemental O2. (3) Atrial fibrillation Current Visit: Yes Status: Acute Code(s): I48.91 - UNSPECIFIED ATRIAL FIBRILLATION SNOMED Code(s): 91410840 Comment: - Patient had an episode of Afib overnight, resolved after Cardizem bolus. - Continue to monitor on Telemetry. -On anticoagulation (4) CKD (chronic kidney disease) stage 3, GFR 30-59 ml/min Current Visit: Yes Status: Acute Code(s): N18.3 - CHRONIC KIDNEY DISEASE, STAGE 3 (MODERATE) SNOMED Code(s): 555351157 Comment: - Secondary to polycystic kidney disease. -Further w/u and transplant referal planning as OP (5) DVT prophylaxis Current Visit: Yes Status: Acute Code(s): GND6928 - SNOMED Code(s): 178961290 Comment: -Lovenox (6) Full code status Current Visit: Yes Status: Acute Code(s): Z78.9 - OTHER SPECIFIED HEALTH STATUS SNOMED Code(s): 144633654 (7) HTN (hypertension) Current Visit: Yes Status: Acute Code(s): I10 - ESSENTIAL (PRIMARY) HYPERTENSION SNOMED Code(s): 61147642 Comment: - Controlled. - Continue Metoprolol. Status and Disposition: Inpatient for management of respiratory failure and PE.
--- NOTE | 2018-08-02 22:41 | CONS ---
CONSULTATION REPORT: DATE OF CONSULT: 08/02/18 REASON FOR CONSULT: Pulmonary embolus. 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 He has chronic renal insufficiency with a baseline creatinine around 1.75. He had generally been feeling well and in good health. At the end of June, he started to develop chest pain and shortness of breath. The chest pain was largely on the right side, it would come and go. He had a very difficult time taking a deep breath. He went to an outside emergency room where he had a chest x-ray that showed an infiltrate on the right side and he was diagnosed with pneumonia. Placed on Augmentin and doxycycline. He took it for 5 days and had very significant upset stomach and diarrhea, so he stopped the medication. His symptoms did seem to improve while he was on antibiotics. Unfortunately, symptoms progressed with more severe pain on the right side and increasing shortness of breath. It was out to the point that he was very debilitated and can hardly move around his house. He had seen Dr. Magaña, who tried to restart antibiotics, but then when symptoms persisted, he was told to come to the emergency room. He presented on 07/30/18, had a CT angiogram that showed bilateral pulmonary emboli, the largest lesion on the right side and associated with a wedge-shaped infiltrate consistent with infarction. He had smaller thrombosis on the left side. He has multiple cysts in the liver and enlarged and cystic kidneys. He had a transthoracic echocardiogram on 07/31 that showed mild LVH and no evidence of right heart strain. He was admitted and placed on IV heparin and Coumadin. He has normal blood counts. His creatinine did go to 2.06 with the IV contrast, but subsequently decreased down to 1.9. He had a mild elevation in troponins of 0.06 to 0.07, mild elevation to glucose to the high of 131. Since starting on heparin, his symptoms have improved dramatically. He is now able to take a deep breath and walking around without much difficulty. He has no prior history of thrombosis. His father had coronary disease, but no significant history of venous blood colts in the family. His daughter and grandson do both have polycystic ovarian disease. He had no travel or prolonged immobilization and no acute illness prior to the event. No transient risk factors he can recall. PAST MEDICAL HISTORY: 1. Polycystic kidney disease. He has had stable creatinine over the long period of time and has never had a transplant or required hemodialysis. 2. Hypertension secondary to kidney disease. 3. History of diverticulitis. 4. Coronary artery disease with 2 stents in 2009. PAST SURGICAL HISTORY: Cardiac stents. FAMILY HISTORY: As noted above, also mother had rheumatoid arthritis and COPD. Daughter with polycystic ovarian disease and have a renal transplant. SOCIAL HISTORY: He does smoke off and on, particularly during the summer when he is riding a fishing [place] charter. He has not been smoking since May. He drinks only occasionally. He is and his is with him today in the hospital. He has 2 children and 2 grandchildren. REVIEW OF SYSTEMS: General: Some fatigue over the past 2 weeks with the symptoms. No fevers, chills, or night sweats. HEENT: Negative. Lungs: As above. Cardiac: Chest pain has improved, felt different than his heart attack chest pain. GI: Negative. : Polyuria and he drinks lots of fluids, otherwise negative. Musculoskeletal: Negative. Neurologic: Negative. Skin: Negative. He has never had easy bruising or bleeding. PHYSICAL EXAM: Temperature 98.2, BP 142/62, saturation 92%, heart rate 61, respirations 20. HEENT: Mucosa moist. No lesions. No cervical or supraclavicular lymphadenopathy. Lungs: Clear to auscultation. Heart: Regular rate and rhythm. S1, S2. In the 60s. Abdomen: He is mildly distended , has palpable liver edge, but nontender. No CVA tenderness. Extremities: No clubbing, cyanosis, or edema. Neurologic: Alert and oriented x3 and grossly nonfocal. Full exam deferred. DIAGNOSTIC STUDIES/LAB DATA: Labs: Creatinine today is 1.89. He is 67 and is 182 pounds. Estimated creatinine clearance is 41 using creatinine of 2.0. ASSESSMENT AND PLAN: A 67-year-old male with a longstanding history of polycystic kidney disease, who had a pulmonary embolus without major transient risk factors. We had a long discussion today about the natural history of a pulmonary embolus without transient risk factors. He had several risk factors for recurrent thrombi including his age, male gender, chronic renal disease. I suspect that he will recover fully from this event given how much better he feels today compared to 2 days ago. We discussed that his lungs may never fully heal from the event, but if his breathing is at baseline, any residual scarring will be nonconsequential. He does need acute and then long-term anticoagulation. Given the creatinine clearance of 41, he is a candidate for Eliquis as a direct XA inhibitor. Eliquis has 75% metabolism to the liver, 25% to the kidney and the patient's creatinine clearance down to 25 were included in the large randomized trials. Eliquis dose start at 10 mg p.o. b.i.d., which I am a little bit of concerned about in the setting of renal insufficiency. For that reason, we discussed starting Lovenox at 1.5 mg subcu daily up until when he will be eligible for Eliquis 5 mg p.o. b.i.d. We gave him his first shot of Lovenox in the hospital now and then we will stop his heparin drip. After 6 months of anticoagulation with Eliquis 5 mg p.o. b.i.d., I suspect we can convert to 2.5 mg p.o. b.i.d. as long-term maintenance. We do have randomized trials with reduced dose of Eliquis and Xarelto and both medications are FDA approved with a reduced dose for maintenance therapy post thrombosis. 1. Lovenox 120 mg subcu given today, next dose will be tomorrow morning. 2. He will follow up on 08/06/18 in clinic, but will plan on taking the Lovenox on the morning of 08/07/18, then starting Eliquis 5 mg p.o. b.i.d. in the evening of 08/07/18. 3. No additional evaluation for thrombophilia at this time. We can send serologic studies in the future, but it will not assist us in management of this event because he is by definition thrombophilic. 4. Case discussed with the hospitalist service and above plan explained in detail to the patient and his . [id number]/[facility] #: [id number] MAYKEL
[2018-08-03 06:38] LABS: ABS Basophils 0 10^3/ul (0-0.2); ABS Eosinophils 0.5 10^3/ul (0-0.6); ABS Lymphocytes 1.4 10^3/ul (1.0-4.8); ABS Monocytes 0.6 10^3/ul (0-0.8); ABS Neutrophils 5.1 10^3/ul (1.5-7.7); ABS Nucleated RBC 0 10^3/ul; Eosinophil % 6.2 % (0-6); Hematocrit 40 % (42-52); Mean Corpuscular HGB Conc 35 g/dl (31-36); Mean Corpuscular Hemoglobin 31 pg (27-31); Mean Corpuscular Volume 89 fL (80-94); Mean Platelet Volume 7.5 fL (7.4-10.4); Nucleated Red Blood Cells % 0.1; Platelet Count 194 10^3/ul (150-450); Red Blood Count 4.52 10^6/ul (4.00-5.40); Red Cell Distribution Width 13 % (10.5-15); White Blood Count 7.7 10^3/ul (3.5-10.8)
[2018-08-03 06:53] LABS: EGFR Non-African American 35.4 (>60)
[2018-08-03] MEDS: Aspirin 81 mg CHEW TAB* 81 MG TAB.CHEW PO SCH (09:21)
[2018-08-03] MEDS: Metoprolol Tartrate TAB* 25 MG PO SCH (09:21)
[2018-08-03] MEDS: Folic Acid TAB* 1 MG PO SCH (09:21)
[2018-08-03] MEDS: Enoxaparin(*) 150 MG/ML 1 ML SYRINGE SUBCUT SCH (11:05)
[2018-08-03 15:34] VITALS: BP 157/78
--- NOTE | 2018-08-03 22:48 | DS ---
DISCHARGE SUMMARY: DATE OF ADMISSION: 07/31/18 DATE OF DISCHARGE: 08/03/18 PRIMARY DIAGNOSES: 1. Pulmonary embolus. 2. Acute hypoxemic respiratory failure secondary to pulmonary embolus. SECONDARY DIAGNOSES: 1. Polycystic kidney disease. 2. Chronic kidney disease. 3. Hypertension. 4. Paroxysmal atrial fibrillation. HOSPITAL COURSE: A 67-year-old male with longstanding history of polycystic kidney disease as well as cystic liver disease and CKD with a baseline creatinine around 1.7, came into the hospital with complaints of pleuritic chest pain and shortness of breath. The patient reports that he was having symptoms for about 10 days and initially thought he had a cold, then had significant pain and came into the hospital for evaluation. The patient had CT angiogram on 07/30/18 in the ER that showed bilateral pulmonary emboli, largest lesion on the right side and associated with a wedge-shaped infiltrate consistent with infarction. The patient also had smaller thrombosis on the left side. The patient has a history of multiple cysts in his liver as well as cystic kidneys and known history of polycystic kidney disease, possibly autosomal dominant with his daughter and grand kids with disease as well. The patient had a transthoracic echocardiogram on 07/31/18 that showed mild LVH and no evidence of right heart strain. The patient was placed on IV heparin initially and placed on Coumadin for treatment of his pulmonary embolus. The patient's creatinine bumped up to 2 with IV contrast in the hospital; however, came down to 1.8 to 1.9. Minimal elevation in troponins to 0.06 to 0.07 secondary to some cardiac strain from the pulmonary embolus. The patient's symptoms significantly improved on anticoagulation. The patient was seen by Dr. Clayton in consultation. It was decided to perform hypercoagulable workup possibly later in the future and the patient was transitioned to Lovenox adjusted for renal insufficiency and was placed on Lovenox at 1.5 mg subcu daily. The plan per discussion with Dr. Clayton would be to continue the Lovenox 120 mg daily until 08/07/18, when he could start taking Eliquis on 08/07/18. The patient has been advised to take his Lovenox in the morning and start the Eliquis in the evening on 08/07/18.The patient will be on Eliquis 5 mg p.o. b.i.d. The patient's prescriptions have been sent to the pharmacy. The patient is also to follow up with Dr. Clayton on in the clinic for further plans. The patient otherwise noted to be stable at the time of discharge. With respect to his polycystic kidney disease , the patient has already seen Dr. Salomon as an outpatient with plans to pursue transplant referral and evaluation in the future as an outpatient. The patient had an episode of atrial fibrillation on the monitor; however, this was an one-time episode and likely secondary to the pulmonary embolus. The patient already noted to be on metoprolol at home, which will be continued. The patient will also be on anticoagulation with Eliquis and currently on lovenox. PHYSICAL EXAMINATION: Vitals are noted to be stable at the time of discharge. Temperature 98.1, pulse 56, respiratory rate 16, oxygen saturation 93%, blood pressure 122/67. HEENT: NCAT. Heart: S1, S2 present. Regular at the time of exam. Lungs: Clear to auscultation bilaterally. Abdomen: Soft, nontender. Extremities: No edema. Neuro: Alert and oriented x3. LABORATORY DATA: Sodium 139, potassium 4.7, chloride 111, bicarb 21. BUN 42, creatinine 1.9. Glucose noted to be 106. FOLLOWUP PLANS: 1. The patient to follow up with Dr. Clayton/Hematology-Oncology as an outpatient on 08/06/18. 2. The patient to follow up with Dr. Salomon as an outpatient as scheduled. 3. The patient to follow up with his primary care doctor within a week. TIME SPENT: Total time spent on discharge is equal to 45 minutes. [id number]/[facility] #: [id number] MTDD
== END 2018-08-03 16:28 | disposition home or self-care (01) | DRG 175 ==
LOC: ED 19:13 → ICU 07-31 00:35 → MEDTELE 07-31 16:24
PROVIDERS: ADMIT Pediatrics; ATTEND Internal Medicine
DX: I26.99 Other pulmonary embolism without acute cor pulmonale (principal); J96.01 Acute respiratory failure with hypoxia; Q61.3 Polycystic kidney, unspecified; Q44.6 Cystic disease of liver; N18.3 Chronic kidney disease, stage 3 (moderate); I48.0 Paroxysmal atrial fibrillation; I12.9 Hypertensive chronic kidney disease with stage 1 through stage 4 chronic kidney disease, or unspecified chronic kidney disease; F17.200 Nicotine dependence, unspecified, uncomplicated; I25.10 Atherosclerotic heart disease of native coronary artery without angina pectoris; Z84.2 Family history of other diseases of the genitourinary system; Z72.89 Other problems related to lifestyle; Z88.1 Allergy status to other antibiotic agents; Z95.5 Presence of coronary angioplasty implant and graft; Z87.01 Personal history of pneumonia (recurrent); Z82.5 Family history of asthma and other chronic lower respiratory diseases; Z82.61 Family history of arthritis; Z79.01 Long term (current) use of anticoagulants
CPT/HCPCS: 36415; 71046; 71275; 80048; 80053; 83605; 83735; 84484; 85025; 85379; 85610; 85730; 87040; 87641; 93005; 93306; 93970; 99223; 99285; A9270-GY; J0456; J0696; J1644; J1650; J2270; J3475; J3490; Q9967